=== PATIENT | female | born 1985 | race Caucasian/White ===

== ENCOUNTER 2019-06-26 15:57 | Emergency (ER) | payer OTHER, MEDICAID, SELFPAY ==
[2019-06-26 16:00] VITALS: BP 128/89; PULSE 77; RESP 18; TEMP 37.1; O2SAT 98
--- NOTE | 2019-06-26 16:10 | ED_ITS ---
HPI - URI/Sore Throat <Calista Chavez PA-C - Last Filed: 06/26/19 20:56> General Chief Complaint: Upper Respiratory Symptoms Stated Complaint: has bronchitis; back pain from coughing Time Seen by Provider: 06/26/19 16:05 Source: patient Mode of arrival: Ambulatory Limitations: no limitations History of Present Illness HPI Narrative: This 33-year-old female comes to ED secondary to increased back pain/muscle spasm. She states that she has been dealing with cough for the last 3+ weeks due to allergies, asthma, and quitting smoking. She states cough has been worse with postnasal drip, some nasal and sinus congestion and sputum for the last week along with sore and scratchy throat. She actually saw her PCP in the last couple of days. She has had chest and back x-rays which did not show pneumonia or other acute problem, however today she states her back is starting to spasm and makes her hesitant to cough or take a deep breath. She states this is more on the right side under her shoulder blade area. She states that she feels a little bit short of breath, albuterol does work but she has to use it regularly. She states that she has Flexeril at home but is visiting here and does not have any. She did take some ibuprofen earlier. She denies new fever today. She does not feel acutely worsen terms of her breathing, was hoping to get medication for back pain. Related Data Home Medications Medication Instructions Recorded Confirmed albuterol sulfate [Ventolin HFA] 2 puff INH PRN PRN #0 01/23/17 06/26/19 dextroamphetamine-amphetamine 10 mg PO QAM #0 01/23/17 [Adderall] duloxetine [Cymbalta] 30 mg PO QDAY #0 01/23/17 hydroxyzine HCl 25 mg PO Q8HP PRN #0 04/30/17 benzonatate 200 mg PO QID PRN 06/26/19 06/26/19 cetirizine 10 mg PO DAILY 06/26/19 06/26/19 famotidine 40 mg PO DAILY 06/26/19 06/26/19 fluoxetine mg 06/26/19 fluticasone propionate 1 spray INTRANASAL PRN PRN 06/26/19 06/26/19 gabapentin 300 mg PO TID 06/26/19 06/26/19 ibuprofen 06/26/19 lamotrigine 150 mg PO BID 06/26/19 06/26/19 naltrexone 50 mg PO DAILY 06/26/19 06/26/19 nicotine 1 patch TOPICAL DAILY 06/26/19 06/26/19 Allergies Allergy/AdvReac Type Severity Reaction Status Date / Time morphine [MORPHINE] Allergy Unknown Unverified 12/19/17 12:25 SEASONAL ALLERGIES Allergy Unknown Uncoded 12/19/17 12:25 Review of Systems <Calista Chavez PA-C - Last Filed: 06/26/19 20:56> Review of Systems ROS Unobtainable: All systems reviewed & are unremarkable except as noted in HPI and below Patient History <Calista Chavez PA-C - Last Filed: 06/26/19 20:56> Medical History (Updated 06/26/19 @ 17:11 by Calista Chavez PA-C) Asthma (Chronic) Chronic back pain (Acute) S/P ORIF (open reduction internal fixation) fracture (Resolved) Seasonal allergies (Acute) Social History Smoking Status: Former smoker Social History Smoking Status: Former smoker Last Alcoholic Drink: Three weeks Exam <Calista Chavez PA-C - Last Filed: 06/26/19 20:56> Narrative Exam Narrative: GENERAL APPEARANCE: Patient sitting comfortably, in no distress. HEAD: No sinus TTP. EYES: PERRL, EOMI. EARS: Normal auditory canals, TMS intact with normal light reflexes. ORAL CAVITY: Normal oropharynx. THROAT: Copious PND noted, no erythema or exudate, voice is hoarse NECK/THYROID: Neck supple, full range of motion, shotty anterior cervical lymphadenopathy. LUNGS: Clear to auscultation bilaterally, coarse cough on exam. HEART: RRR without murmur, nl S1, S2, no S3 or S4. Initial Vital Signs Initial Vital Signs: Vital Signs Temperature 98.7 F 06/26/19 16:00 Pulse Rate 77 06/26/19 16:00 Respiratory Rate 18 06/26/19 16:00 Blood Pressure 128/89 06/26/19 16:00 Pulse Oximetry 98 06/26/19 16:00 <Shira Keith MD - Last Filed: 06/29/19 07:01> Initial Vital Signs Initial Vital Signs: Vital Signs Temperature 98.7 F 06/26/19 16:00 Pulse Rate 77 06/26/19 16:00 Respiratory Rate 18 06/26/19 16:00 Blood Pressure 128/89 06/26/19 16:00 Pulse Oximetry 98 06/26/19 16:00 Course <Calista Chavez PA-C - Last Filed: 06/26/19 20:56> Course Additional Information: Patient reports feeling significantly improved after nebulizer treatment and back pain starting to improve after medications. She states that she has had good relief with these in the past, planning to walk to her friend's house and rest there tonight. She feels like this is a typical back pain exacerbation, agrees to return if any acute changes or worsening this evening. Counseled on treating her allergies, restarting Flonase and possible steroids or steroid inhaler and she agrees to follow up with her PCP next week Orders Ordered: Discontinued Medications Albuterol/Ipratropium (Duoneb) 3 ml INH NOW ONE Stop: 06/26/19 16:23 Last Admin: 06/26/19 16:48 Dose: 3 ml Documented by: SMITH Cyclobenzaprine HCl (Flexeril) 10 mg PO NOW ONE Stop: 06/26/19 16:23 Last Admin: 06/26/19 16:35 Dose: 10 mg Documented by: YASMIN Ketorolac Tromethamine (Toradol) 60 mg IM NOW ONE Stop: 06/26/19 16:23 Last Admin: 06/26/19 16:35 Dose: 60 mg Documented by: YASMIN Vital Signs Vital signs: Vital Signs - 8 hr 06/26/19 16:00 06/26/19 17:05 Temperature 98.7 F Pulse Rate 77 93 H Respiratory Rate 18 16 Blood Pressure 128/89 Blood Pressure [Left Arm] 135/96 H Pulse Oximetry 98 98 <Shira Keith MD - Last Filed: 06/29/19 07:01> Orders Ordered: Discontinued Medications Albuterol/Ipratropium (Duoneb) 3 ml INH NOW ONE Stop: 06/26/19 16:23 Last Admin: 06/26/19 16:48 Dose: 3 ml Documented by: SMITH Cyclobenzaprine HCl (Flexeril) 10 mg PO NOW ONE Stop: 06/26/19 16:23 Last Admin: 06/26/19 16:35 Dose: 10 mg Documented by: YASMIN Ketorolac Tromethamine (Toradol) 60 mg IM NOW ONE Stop: 06/26/19 16:23 Last Admin: 06/26/19 16:35 Dose: 60 mg Documented by: YASMIN Vital Signs Vital signs: Vital Signs - 8 hr 06/26/19 16:00 06/26/19 17:05 Temperature 98.7 F Pulse Rate 77 93 H Respiratory Rate 18 16 Blood Pressure 128/89 Blood Pressure [Left Arm] 135/96 H Pulse Oximetry 98 98 Discharge Plan Departure Patient Disposition: Home Clinical Impression: Muscle spasm of back Asthma Qualifiers: Asthma severity: moderate Asthma persistence: persistent Asthma complication type: with acute exacerbation Qualified Code(s): J45.41 - Moderate persistent asthma with (acute) exacerbation Discharge Date/Time: 06/26/19 17:30 Instructions: DI for Asthma -- Adult, DI for Muscle Spasm Activity Restrictions/Additional Instructions: You can continue cyclobenzaprine as needed, and restart your ibuprofen tomorrow as needed as well. These work nicely together. Remember not to drive while taking cyclobenzaprine as it can make you sleepy. Continue your inhaler as often as needed. Return here as we talked about if you have any acutely wors ening symptoms while you are here this evening, or new symptoms such as high fever. Please follow-up with your PCP in the next few days to assess her progress and determine whether you may need other treatment, such as steroids, for your asthma. Prescriptions: No Action albuterol sulfate [Ventolin HFA] 90 MCG/PUFF HFA aerosol inhaler 2 puff INH PRN PRN (Reason: Shortness Of Breath) Qty: 0 RF: 0 duloxetine [Cymbalta] 30 MG capsule,delayed release(DR/EC) 30 mg PO QDAY Qty: 0 RF: 0 dextroamphetamine-amphetamine [Adderall] 10 MG tablet 10 mg PO QAM Qty: 0 RF: 0 hydroxyzine HCl 25 MG tablet 25 mg PO Q8HP PRNQty: 0 RF: 0 fluoxetine 40 mg capsule RF: 0 lamotrigine 150 mg tablet 150 mg PO BID RF: 0 nicotine 14 mg/24 hr patch 24 hour 1 patch topical DAILY RF: 0 cetirizine 10 mg tablet 10 mg PO DAILY RF: 0 benzonatate 200 mg capsule 200 mg PO QID PRN (Reason: Cough) RF: 0 naltrexone 50 mg tablet 50 mg PO DAILY RF: 0 famotidine 40 mg tablet 40 mg PO DAILY RF: 0 gabapentin 300 mg capsule 300 mg PO TID RF: 0 ibuprofen 600 mg tablet RF: 0 fluticasone propionate 50 mcg/actuation spray,suspension 1 spray INTRANASAL PRN PRN (Reason: Allergy Symptoms) RF: 0 Referrals: Jose Rosas [Other]
[2019-06-26] MEDS: KETOROLAC 60 MG/2 ML VIAL IM (16:35)
[2019-06-26] MEDS: CYCLOBENZAPRINE 10 MG TABLET PO (16:35)
[2019-06-26] MEDS: ALBUTEROL/IPRATROPIUM 3 ML AMPUL INH (16:48)
[2019-06-26 17:05] VITALS: BP 135/96; PULSE 93; RESP 16; O2SAT 98
== END 2019-06-26 17:30 | disposition home or self-care (01) ==
PROVIDERS: Emergency Provider Internal Medicine
DX: M62.830 Muscle spasm of back (principal); J45.41 Moderate persistent asthma with (acute) exacerbation
CPT/HCPCS: 96372; 99282; 99283; J1885

== ENCOUNTER 2019-08-01 16:36 | Emergency (ER) | payer OTHER, MEDICAID, SELFPAY ==
[2019-08-01 16:46] VITALS: BP 143/76; PULSE 66; RESP 16; TEMP 36.7; O2SAT 100
--- NOTE | 2019-08-01 17:08 | PC.NURSE ---
During discussion with patient at triage patient reports three serious suicidal attempts since 2012. I tried [place] the police stopped me and brought me in, I tried jumping off an over pass into traffic, i have tried drowning myself Patient states I know no one will come to my so I will throw my own. I want to kill myself so publicly and embarassing that they will all grieve my . I want to kill myself but I have so much fucking karseda Patient reports her plan is to hang herself. Reports multiple hospitalizations for mental health, only dx with boarder line personality, has not been taking medications for about one week. I went to my best friends dad's viewing yesterday and I cant stop seeing ghosts Reports auditory and visual hallucinations. Contracts for safety while in the department let me help you go through my things I have knives and survival gear assured patient that we would lock her belongings up. Patient admits she wants help. Patient states she lives with a roommate who is also trying to kill herself
[2019-08-01] MEDS: LORazepam 0.5 MG TABLET 2 MG PO (17:42)
[2019-08-01 17:44] LABS: Add Manual Diff / Slide Review NO; Basophils Absolute Auto 100 /uL (0-100); Basophils Percent Auto 0.4 % (0-2); Eosinophils Absolute Auto 100 /uL (0-450); Eosinophils Percent Auto 0.5 % (2-4); Hematocrit 38.1 % (36-46); Hemoglobin 12.7 g/dL (12.0-16.0); Lymphocytes Absolute Auto 1500 /uL (1100-4500); Lymphocytes Percent Auto 10.1 % (25-40); Mean Corpuscular HGB Conc 33.3 % (30-36); Mean Corpuscular Hemoglobin 29.8 PG (26-34); Mean Corpuscular Volume 89.4 fL (80-100); Monocytes Absolute Auto 900 /uL (0-900); Monocytes Percent Auto 6.5 % (3-14); Neutrophils Absolute Auto 12000 /uL (1500-7000); Neutrophils Percent Auto 82.5 % (50-75); Platelet Count 412 X10^3/uL (150-400); Red Blood Cell Count 4.26 X10^6/uL (4.0-5.2); Red Cell Distribution Width 14.5 % (11.6-14.8); White Blood Cell Count 14.6 X10^3/uL (4.5-11.0)
[2019-08-01] MEDS: ACETAMINOPHEN 325 MG TABLET 975 MG PO (17:55)
[2019-08-01 17:59] LABS: Acetaminophen < 10 ug/mL (10-30); Alanine Aminotransferase 35 IU/L (<35); Albumin Globulin Ratio 1.7 (1.0-2.8); Alkaline Phosphatase 114 U/L (38-126); Amylase 52 U/L (30-110); Aspartate Aminotransferase 62 IU/L (14-36); BUN Creatinine Ratio 15.7 (6-22); Bilirubin Total 0.7 mg/dL (0.2-1.3); Blood Urea Nitrogen 11 mg/dL (7-17); Calcium 9.9 mg/dL (8.4-10.2); Carbon Dioxide 21 mmol/L (22-32); Chloride 105 mmol/L (98-107); Estimated Glomerular Filt Rate > 60.0 mL/min (>60); Ethanol (ETOH) < 10 mg/dL; Globulin 2.9 g/dL (1.7-4.1); Glucose 98 mg/dL (70-100); HEMOLYSIS < 15 (0-50); Lipase 51 U/L (23-300); Potassium 3.9 mmol/L (3.4-5.1); Salicylate < 1.0 mg/dL (<20); Sodium 139 mmol/L (137-145); Total Protein 7.9 g/dL (6.3-8.2)
[2019-08-01 18:35] VITALS: PULSE 104; RESP 16; O2SAT 96
[2019-08-01 18:50] LABS: Thyroid Stimulating Hormone 0.57 uIU/mL (0.47-4.68)
--- NOTE | 2019-08-01 18:50 | ED_ITS ---
HPI - Psych <Nara Astudillo, [employer]UE ADDED ASSESSOR-BC - Last Filed: 08/01/19 21:19> General Chief Complaint: Psychiatric Symptoms Stated Complaint: sucidal ideation Time Seen by Provider: 08/01/19 17:19 Source: patient Mode of arrival: Ambulatory History of Present Illness HPI Narrative: The patient is a 33-year-old female former smoker with history of depression and suicide attempts who presents with a chief complaint of suicidal ideation. She has a plan to hang herself, and presents to the emergency department with a noose as well as pepper spray and a knife. She has a history of multiple suicide attempts [place]. She has a history of multiple hospitalizations. She states that she has been off of her meds for 1 week, comes to the emergency department after going to her friend's father's week, which she viewed his corpse. She states that since the viewing, she has seen done people and goes, complains of visual and auditory hallucinations. She states that she wants to kill herself and anybody else who cares about her. She denies any drug use other than marijuana. Related Data Home Medications Medication Instructions Recorded Confirmed albuterol sulfate [Ventolin HFA] 2 puff INH PRN PRN #0 01/23/17 06/26/19 dextroamphetamine-amphetamine 10 mg PO QAM #0 01/23/17 [Adderall] duloxetine [Cymbalta] 30 mg PO QDAY #0 01/23/17 hydroxyzine HCl 25 mg PO Q8HP PRN #0 04/30/17 benzonatate 200 mg PO QID PRN 06/26/19 06/26/19 cetirizine 10 mg PO DAILY 06/26/19 06/26/19 famotidine 40 mg PO DAILY 06/26/19 06/26/19 fluoxetine mg 06/26/19 fluticasone propionate 1 spray INTRANASAL PRN PRN 06/26/19 06/26/19 gabapentin 300 mg PO TID 06/26/19 06/26/19 ibuprofen 06/26/19 lamotrigine 150 mg PO BID 06/26/19 06/26/19 naltrexone 50 mg PO DAILY 06/26/19 06/26/19 nicotine 1 patch TOPICAL DAILY 06/26/19 06/26/19 Allergies Allergy/AdvReac Type Severity Reaction Status Date / Time morphine [MORPHINE] Allergy Unknown ITCHING Unverified 08/01/19 16:58 SEASONAL ALLERGIES Allergy Unknown Uncoded 12/19/17 12:25 Review of Systems <SUZIE Capone - Last Filed: 08/01/19 21:19> Review of Systems Narrative: GENERAL: Denies chills, fatigue, malaise, fever, sweats. HEENT: Denies sinus pain, ear pain, sore throat, difficulty swallowing, dizziness. RESPIRATORY: Denies dyspnea, cough, wheezing, hemoptysis, sputum. CARDIOVASCULAR: Denies chest pain, palpitations, orthopnea, edema, GASTROINTESTINAL: Denies nausea, vomiting, abdominal pain, diarrhea, constipation, melena. : Denies dysuria, frequency, incontinence, hematuria, urinary retention. MUSCULOSKELETAL: denies weakness, joint pain, or bony pain SKIN: See HPI NEUROLOGIC: Denies weakness, headache, numbness, change in speech, confusion, seizures, incoordination. PSYCHIATRIC: No concerning psychosocial issues. 12 point review of systems is negative except for those stated above Patient History <SUZIE Capone - Last Filed: 08/01/19 21:19> Medical History Asthma (Chronic) Chronic back pain (Acute) S/P ORIF (open reduction internal fixation) fracture (Resolved) Seasonal allergies (Acute) Social History Smoking Status: Former smoker alcohol intake frequency: other Substance Use Type: marijuana Exam <SUZIE Capone - Last Filed: 08/01/19 21:19> Narrative Exam Narrative: GENERAL: This is a well-nourished, well-developed patient, appears very anxious, pulling at her hair HEAD: Atraumatic. Normocephalic. No temporal or scalp tenderness. EYES: Pupils equal round and reactive. Extraocular motions intact. No scleral icterus. No injection or drainage. ENT: Nose without bleeding, purulent drainage or septal hematoma. Throat without erythema, tonsillar hypertrophy or exudate. Uvula midline. Airway patent. NECK: Trachea midline. No JVD or lymphadenopathy. Supple, nontender, no meningeal signs. CARDIOVASCULAR: Regular rate and rhythm without murmurs, gallops, or rubs. RESPIRATORY: Clear to auscultation. Breath sounds equal bilaterally. No wheezes, rales, or rhonchi. No cough. No increased respiratory effort. No accessory muscle use. GASTROINTESTINAL: Abdomen soft, non-tender, nondistended. No hepato- splenomegaly, or palpable masses. No guarding. EXTREMITIES: No clubbing, cyanosis, or edema. No joint tenderness, effusion, or edema noted. BACK: Nontender without deformity or crepitance. No flank tenderness. NEURO: AOx3. Complaining suicidal ideation and homicidal ideation. Complaining of auditory and visual hallucinations. SKIN: No rash or erythema. Initial Vital Signs Initial Vital Signs: Vital Signs Temperature 98.0 F 08/01/19 16:46 Pulse Rate 66 08/01/19 16:46 Respiratory Rate 16 08/01/19 16:46 Blood Pressure 143/76 H 08/01/19 16:46 Pulse Oximetry 100 08/01/19 16:46 <Adan Huitron DO - Last Filed: 08/01/19 21:43> Initial Vital Signs Initial Vital Signs: Vital Signs Temperature 98.0 F 08/01/19 16:46 Pulse Rate 66 08/01/19 16:46 Respiratory Rate 16 08/01/19 16:46 Blood Pressure 143/76 H 08/01/19 16:46 Pulse Oximetry 100 08/01/19 16:46 Course <SUZIE Capone - Last Filed: 08/01/19 21:19> Orders Ordered: ED Orders 08/01/19 17:20 Consult to INSPECTOR OPEN DIE - Auto Heater Mechanic Stat 08/01/19 17:38 Acetaminophen Stat Amylase Stat Complete Blood Count AUTO DIFF Stat Comprehensive Metabolic Panel Stat Ethanol (ETOH) Stat Lipase Stat Salicylate Stat Thyroid Stimulating Hormone Stat 08/01/19 20:31 Ictotest Urine Stat Urinalysis and Microscopic Stat Urine Culture Stat Urine Drug Screen, Rapid Stat Discontinued Medications Acetaminophen (Tylenol) 975 mg PO NOW ONE Stop: 08/01/19 17:53 Last Admin: 08/01/19 17:55 Dose: 975 mg Documented by: GABRIELA Lorazepam (Ativan) 2 mg PO NOW ONE Stop: 08/01/19 17:28 Last Admin: 08/01/19 17:42 Dose: 2 mg Documented by: GABRIELA Vital Signs Vital signs: Vital Signs - 8 hr 08/01/19 16:46 08/01/19 18:35 Temperature 98.0 F Pulse Rate 66 104 H Respiratory Rate 16 16 Blood Pressure 143/76 H Pulse Oximetry 100 96 <Adan Huitron DO - Last Filed: 08/01/19 21:43> Orders Ordered: ED Orders 08/01/19 17:20 Consult to INSPECTOR OPEN DIE - Auto Heater Mechanic Stat 08/01/19 17:38 Acetaminophen Stat Amylase Stat Complete Blood Count AUTO DIFF Stat Comprehensive Metabolic Panel Stat Ethanol (ETOH) Stat Lipase Stat Salicylate Stat Thyroid Stimulating Hormone Stat 08/01/19 20:31 Ictotest Urine Stat Urinalysis and Microscopic Stat Urine Culture Stat Urine Drug Screen, Rapid Stat Discontinued Medications Acetaminophen (Tylenol) 975 mg PO NOW ONE Stop: 08/01/19 17:53 Last Admin: 08/01/19 17:55 Dose: 975 mg Documented by: GABRIELA Lorazepam (Ativan) 2 mg PO NOW ONE Stop: 08/01/19 17:28 Last Admin: 08/01/19 17:42 Dose: 2 mg Documented by: GABRIELA Vital Signs Vital signs: Vital Signs - 8 hr 08/01/19 16:46 08/01/19 18:35 Temperature 98.0 F Pulse Rate 66 104 H Respiratory Rate 16 16 Blood Pressure 143/76 H Pulse Oximetry 100 96 [facility] - Psych <SUZIE Capone - Last Filed: 08/01/19 21:19> Lab Data Result diagrams: 08/01/19 17:38 08/01/19 17:38 Labs: Lab Results 08/01/19 08/01/19 08/01/19 Range/Units 17:38 17:38 17:38 WBC 14.6 H (4.5-11.0) X10^3/uL RBC 4.26 (4.0-5.2) X10^6/uL Hgb 12.7 (12.0-16.0) g/dL Hct 38.1 (36-46) % MCV 89.4 (80-100) fL MCH 29.8 (26-34) PG MCHC 33.3 (30-36) % RDW 14.5 (11.6-14.8) % Plt Count 412 H (150-400) X10^3/uL Neut % (Auto) 82.5 H (50-75) % Lymph % (Auto) 10.1 L (25-40) % [place] % (Auto) 6.5 (3-14) % Eos % (Auto) 0.5 L (2-4) % Baso % (Auto) 0.4 (0-2) % Neut # (Auto) 55564 H (9015-7592) /uL Lymph # (Auto) 1500 (5996-2623) /uL [place] # (Auto) 900 (0-900) /uL Eos # (Auto) 100 (0-450) /uL Baso # (Auto) 100 (0-100) /uL Sodium 139 (137-145) mmol/L Potassium 3.9 (3.4-5.1) mmol/L Chloride 105 (98-107) mmol/L Carbon Dioxide 21 L (22-32) mmol/L BUN 11 (7-17) mg/dL Creatinine 0.70 (0.52-1.04) mg/dL Estimated GFR > 60.0 (>60) mL/min BUN/Creatinine Ratio 15.7 (6-22) Glucose 98 (70-100) mg/dL Calcium 9.9 (8.4-10.2) mg/dL Total Bilirubin 0.7 (0.2-1.3) mg/dL AST 62 H (14-36) IU/L ALT 35 H (<35) IU/L Alkaline Phosphatase 114 (38-126) U/L Total Protein 7.9 (6.3-8.2) g/dL Albumin 5.0 (3.5-5.0) g/dL Globulin 2.9 (1.7-4.1) g/dL Albumin/Globulin Ratio 1.7 (1.0-2.8) Amylase (30-110) U/L Lipase (23-300) U/L TSH 0.57 (0.47-4.68) uIU/mL Urine Color Urine Appearance Urine pH (4.5-8.0) Ur Specific [place] (1.000-1.035) Urine Protein (Negative) Urine Glucose (UA) (Negative) g/dL Urine Ketones (NEGATIVE) Urine Occult Blood (Negative) Urine Nitrate (Negative) Urine Bilirubin (NEGATIVE) Urine Ictotest (Negative) Urine Urobilinogen (0.2) E.U./dL Ur Leukocyte Esterase (NEGATIVE) Urine RBC (0-5/HPF) Urine WBC (0-5/HPF) Ur Squamous Epith Cells (0-5/HPF) Urine Bacteria (None) Ur Culture Indicated? Salicylates < 1.0 (<20) mg/dL U Morph 300 ng/mL cutoff (Negative) Ur Oxycodone Screen (Negative) Urine Methadone Screen (Negative) Acetaminophen < 10 L (10-30) ug/mL Ur Barbiturates Screen (Negative) U Tricyclic Antidepress (Negative) Ur Phencyclidine Scrn (Negative) Ur Amphetamines Screen (Negative) U Methamphetamines Scrn (Negative) Ur MDMA Scrn (Ecstasy) (Negative) U Benzodiazepines Scrn (Negative) Urine Cocaine Screen (Negative) U Marijuana (THC) Screen (Negative) Ethyl Alcohol < 10 ( - 10) mg/dL 08/01/19 08/01/19 08/01/19 Range/Units 17:38 20:31 20:31 WBC (4.5-11.0) X10^3/uL RBC (4.0-5.2) X10^6/uL Hgb (12.0-16.0) g/dL Hct (36-46) % MCV (80-100) fL MCH (26-34) PG MCHC (30-36) % RDW (11.6-14.8) % Plt Count (150-400) X10^3/uL Neut % (Auto) (50-75) % Lymph % (Auto) (25-40) % [place] % (Auto) (3-14) % Eos % (Auto) (2-4) % Baso % (Auto) (0-2) % Neut # (Auto) (2425-2190) /uL Lymph # (Auto) (1470-0510) /uL [place] # (Auto) (0-900) /uL Eos # (Auto) (0-450) /uL Baso # (Auto) (0-100) /uL Sodium (137-145) mmol/L Potassium (3.4-5.1) mmol/L Chloride (98-107) mmol/L Carbon Dioxide (22-32) mmol/L BUN (7-17) mg/dL Creatinine (0.52-1.04) mg/dL Estimated GFR (>60) mL/min BUN/Creatinine Ratio (6-22) Glucose (70-100) mg/dL Calcium (8.4-10.2) mg/dL Total Bilirubin (0.2-1.3) mg/dL AST (14-36) IU/L ALT (<35) IU/L Alkaline Phosphatase (38-126) U/L Total Protein (6.3-8.2) g/dL Albumin (3.5-5.0) g/dL Globulin (1.7-4.1) g/dL Albumin/Globulin Ratio (1.0-2.8) Amylase 52 (30-110) U/L Lipase 51 (23-300) U/L TSH (0.47-4.68) uIU/mL Urine Color Red Urine Appearance Clear Urine pH 5.5 (4.5-8.0) Ur Specific [place] 1.020 (1.000-1.035) Urine Protein 2+ H (Negative) Urine Glucose (UA) Negative (Negative) g/dL Urine Ketones 3+ H (NEGATIVE) Urine Occult Blood 3+ H (Negative) Urine Nitrate Negative (Negative) Urine Bilirubin 1+ H (NEGATIVE) Urine Ictotest Negative (Negative) Urine Urobilinogen 0.2 (0.2) E.U./dL Ur Leukocyte Esterase 2+ H (NEGATIVE) Urine RBC >100/hpf H (0-5/HPF) Urine WBC 10-30/hpf H (0-5/HPF) Ur Squamous Epith Cells 1-5 /hpf (0-5/HPF) Urine Bacteria Many (>30) H (None) Ur Culture Indicated? Specimen cultured Salicylates (<20) mg/dL U Morph 300 ng/mL cutoff Negative (Negative) Ur Oxycodone Screen Negative (Negative) Urine Methadone Screen Negative (Negative) Acetaminophen (10-30) ug/mL Ur Barbiturates Screen Negative (Negative) U Tricyclic Antidepress Positive H (Negative) Ur Phencyclidine Scrn Negative (Negative) Ur Amphetamines Screen Negative (Negative) U Methamphetamines Scrn Negative (Negative) Ur MDMA Scrn (Ecstasy) Negative (Negative) U Benzodiazepines Scrn Negative (Negative) Urine Cocaine Screen Negative (Negative) U Marijuana (THC) Screen Positive H (Negative) Ethyl Alcohol ( - 10) mg/dL Point of Care Testing Test Results Negative MDM Narrative Medical decision making narrative: The patient is a 33-year-old female with history of borderline personality disorder who presents with a chief complaint of suicidal ideation. She states that she went to kill herself by hanging presents to the emergency department with the news in her bag. She has a significant history of multiple suicide attempts, multiple hospitalizations. She notes that she went to a and has since been elucidated gives and that people. She complains of command hallucinations, but does not the verify with the hallucinations state. She states that she sees people. The patient is very perseverative, tangential, has pressured speech and appears very paranoid on initial evaluation. She was evaluated by shoe parts caser, who has sent paperwork to [place]. At this point the patient remains voluntary, however she tries to leave, I would make her in voluntary at that point time. She has been cooperative throughout her stay in the emergency department, though at times stating she monitor parents to come pick her up so she could leave. Her urinalysis indicates a possible UTI. Patient was signed out to Dr. Huitron at 2100 with placement pending <Adan Huitron, DO - Last Filed: 08/01/19 21:43> Lab Data Labs: Lab Results 08/01/19 08/01/19 08/01/19 Range/Units 17:38 17:38 17:38 WBC 14.6 H (4.5-11.0) X10^3/uL RBC 4.26 (4.0-5.2) X10^6/uL Hgb 12.7 (12.0-16.0) g/dL Hct 38.1 (36-46) % MCV 89.4 (80-100) fL MCH 29.8 (26-34) PG MCHC 33.3 (30-36) % RDW 14.5 (11.6-14.8) % Plt Count 412 H (150-400) X10^3/uL Neut % (Auto) 82.5 H (50-75) % Lymph % (Auto) 10.1 L (25-40) % [place] % (Auto) 6.5 (3-14) % Eos % (Auto) 0.5 L (2-4) % Baso % (Auto) 0.4 (0-2) % Neut # (Auto) 79064 H (0387-0722) /uL Lymph # (Auto) 1500 (8661-4052) /uL [place] # (Auto) 900 (0-900) /uL Eos # (Auto) 100 (0-450) /uL Baso # (Auto) 100 (0-100) /uL Sodium 139 (137-145) mmol/L Potassium 3.9 (3.4-5.1) mmol/L Chloride 105 (98-107) mmol/L Carbon Dioxide 21 L (22-32) mmol/L BUN 11 (7-17) mg/dL Creatinine 0.70 (0.52-1.04) mg/dL Estimated GFR > 60.0 (>60) mL/min BUN/Creatinine Ratio 15.7 (6-22) Glucose 98 (70-100) mg/dL Calcium 9.9 (8.4-10.2) mg/dL Total Bilirubin 0.7 (0.2-1.3) mg/dL AST 62 H (14-36) IU/L ALT 35 H (<35) IU/L Alkaline Phosphatase 114 (38-126) U/L Total Protein 7.9 (6.3-8.2) g/dL Albumin 5.0 (3.5-5.0) g/dL Globulin 2.9 (1.7-4.1) g/dL Albumin/Globulin Ratio 1.7 (1.0-2.8) Amylase (30-110) U/L Lipase (23-300) U/L TSH 0.57 (0.47-4.68) uIU/mL Urine Color Urine Appearance Urine pH (4.5-8.0) Ur Specific [place] (1.000-1.035) Urine Protein (Negative) Urine Glucose (UA) (Negative) g/dL Urine Ketones (NEGATIVE) Urine Occult Blood (Negative) Urine Nitrate (Negative) Urine Bilirubin (NEGATIVE) Urine Ictotest (Negative) Urine Urobilinogen (0.2) E.U./dL Ur Leukocyte Esterase (NEGATIVE) Urine RBC (0-5/HPF) Urine WBC (0-5/HPF) Ur Squamous Epith Cells (0-5/HPF) Urine Bacteria (None) Ur Culture Indicated? Salicylates < 1.0 (<20) mg/dL U Morph 300 ng/mL cutoff (Negative) Ur Oxycodone Screen (Negative) Urine Methadone Screen (Negative) Acetaminophen < 10 L (10-30) ug/mL Ur Barbiturates Screen (Negative) U Tricyclic Antidepress (Negative) Ur Phencyclidine Scrn (Negative) Ur Amphetamines Screen (Negative) U Methamphetamines Scrn (Negative) Ur MDMA Scrn (Ecstasy) (Negative) U Benzodiazepines Scrn (Negative) Urine Cocaine Screen (Negative) U Marijuana (THC) Screen (Negative) Ethyl Alcohol < 10 ( - 10) mg/dL 08/01/19 08/01/19 08/01/19 Range/Units 17:38 20:31 20:31 WBC (4.5-11.0) X10^3/uL RBC (4.0-5.2) X10^6/uL Hgb (12.0-16.0) g/dL Hct (36-46) % MCV (80-100) fL MCH (26-34) PG MCHC (30-36) % RDW (11.6-14.8) % Plt Count (150-400) X10^3/uL Neut % (Auto) (50-75) % Lymph % (Auto) (25-40) % [place] % (Auto) (3-14) % Eos % (Auto) (2-4) % Baso % (Auto) (0-2) % Neut # (Auto) (6686-2198) /uL Lymph # (Auto) (9513-6249) /uL [place] # (Auto) (0-900) /uL Eos # (Auto) (0-450) /uL Baso # (Auto) (0-100) /uL Sodium (137-145) mmol/L Potassium (3.4-5.1) mmol/L Chloride (98-107) mmol/L Carbon Dioxide (22-32) mmol/L BUN (7-17) mg/dL Creatinine (0.52-1.04) mg/dL Estimated GFR (>60) mL/min BUN/Creatinine Ratio (6-22) Glucose (70-100) mg/dL Calcium (8.4-10.2) mg/dL Total Bilirubin (0.2-1.3) mg/dL AST (14-36) IU/L ALT (<35) IU/L Alkaline Phosphatase (38-126) U/L Total Protein (6.3-8.2) g/dL Albumin (3.5-5.0) g/dL Globulin (1.7-4.1) g/dL Albumin/Globulin Ratio (1.0-2.8) Amylase 52 (30-110) U/L Lipase 51 (23-300) U/L TSH (0.47-4.68) uIU/mL Urine Color Red Urine Appearance Clear Urine pH 5.5 (4.5-8.0) Ur Specific [place] 1.020 (1.000-1.035) Urine Protein 2+ H (Negative) Urine Glucose (UA) Negative (Negative) g/dL Urine Ketones 3+ H (NEGATIVE) Urine Occult Blood 3+ H (Negative) Urine Nitrate Negative (Negative) Urine Bilirubin 1+ H (NEGATIVE) Urine Ictotest Negative (Negative) Urine Urobilinogen 0.2 (0.2) E.U./dL Ur Leukocyte Esterase 2+ H (NEGATIVE) Urine RBC >100/hpf H (0-5/HPF) Urine WBC 10-30/hpf H (0-5/HPF) Ur Squamous Epith Cells 1-5 /hpf (0-5/HPF) Urine Bacteria Many (>30) H (None) Ur Culture Indicated? Specimen cultured Salicylates (<20) mg/dL U Morph 300 ng/mL cutoff Negative (Negative) Ur Oxycodone Screen Negative (Negative) Urine Methadone Screen Negative (Negative) Acetaminophen (10-30) ug/mL Ur Barbiturates Screen Negative (Negative) U Tricyclic Antidepress Positive H (Negative) Ur Phencyclidine Scrn Negative (Negative) Ur Amphetamines Screen Negative (Negative) U Methamphetamines Scrn Negative (Negative) Ur MDMA Scrn (Ecstasy) Negative (Negative) U Benzodiazepines Scrn Negative (Negative) Urine Cocaine Screen Negative (Negative) U Marijuana (THC) Screen Positive H (Negative) Ethyl Alcohol ( - 10) mg/dL Point of Care Testing Test Results Negative Discharge Plan Departure Prescriptions: No Action albuterol sulfate [Ventolin HFA] 90 MCG/PUFF HFA aerosol inhaler 2 puff INH PRN PRN (Reason: Shortness Of Breath) Qty: 0 RF: 0 duloxetine [Cymbalta] 30 MG capsule,delayed release(DR/EC) 30 mg PO QDAY Qty: 0 RF: 0 dextroamphetamine-amphetamine [Adderall] 10 MG tablet 10 mg PO QAM Qty: 0 RF: 0 hydroxyzine HCl 25 MG tablet 25 mg PO Q8HP PRNQty: 0 RF: 0 fluoxetine 40 mg capsule RF: 0 lamotrigine 150 mg tablet 150 mg PO BID RF: 0 nicotine 14 mg/24 hr patch 24 hour 1 patch topical DAILY RF: 0 cetirizine 10 mg tablet 10 mg PO DAILY RF: 0 benzonatate 200 mg capsule 200 mg PO QID PRN (Reason: Cough) RF: 0 naltrexone 50 mg tablet 50 mg PO DAILY RF: 0 famotidine 40 mg tablet 40 mg PO DAILY RF: 0 gabapentin 300 mg capsule 300 mg PO TID RF: 0 ibuprofen 600 mg tablet RF: 0 fluticasone propionate 50 mcg/actuation spray,suspension 1 spray INTRANASAL PRN PRN (Reason: Allergy Symptoms) RF: 0 <Adan Huitron, DO - Last Filed: 08/01/19 21:43> Sign Out Provider Sign Out Attestation: Dr Huitron Co-Sign Statement: I was available for consultation during this patient's emergency department visit. This chart is signed by myself for administrative purposes only. I did not have direct contact with this patient during this visit. They were seen independently by the APC.
--- NOTE | 2019-08-01 18:50 | CM.SWNOTE ---
Discharge Planning/Care Management ED Psychiatric Symptoms Assessment Start: 08/01/19 16:58 Freq: Status: Active Protocol: Document 08/01/19 17:15 ML (Rec: 08/01/19 18:39 ML [id number]) Psychiatric Symptoms Assessment Symptoms/Complaint Suicidal Ideation Duration Getting Worse History Of Same Yes Associated Psychiatric Symptoms Auditory Hallucinations, Delusions,Depression,Racing Thoughts,Suicidal Ideation, Visual Hallucinations Associated Symptoms Vomiting If Self Harm Admits Thoughts of Self Harm, Has Plans Level of Consciousness Alert,Inappropriate Patient Orientation Name,Age,Birthday,Month,Date, Year,Day of Week,Place, Situation Patient Behavior/Mood Anxious,Cooperative,Crying/ Tearful,Distractible,Fearful, Impulsive,Labile,Restless Ability to Follow Directions Good Patient Cognition Impaired No Affect Description Anxious Patient Appearance Disheveled Hallucination Type Auditory,Visual Delusion Description Paranoid Ideation Thought Process: Disorganized Depressive Symptoms Crying Spells,Difficulty Concentrating,Insomnia Suicidal Ideation Constant Suicide Plan Clear Homicidal Ideation None Nausea/Vomiting Vomiting Emesis Description Food, Undigested TOOL KEEPER - General Dentist/Owner Assessment Start: 08/01/19 18:25 Freq: Status: Active Protocol: Document 08/01/19 18:25 DPL (Rec: 08/01/19 18:50 DPL [id number]) TOOL KEEPER/General Dentist/Owner Assessment Start date 08/01/19 Visit Start Time 05:00 End date 08/01/19 Visit End Time 08:00 Total time Care Management spent on 180 minutes patient visit-in minutes Presenting Problem Patient presents to the ED with acute suicidal ideation/ intent, psychosis; auditory and visual hallucinations. She is extremely anxious and tearful, shares that she has had at least 3-prior serious attempts which were stopped by other people. Dates are not clear, however the first time she attempted to jump off the [place], was stopped by police. Second time , she attempted to jump off of a highway overpass, was stopped by people passing by. Third time (2012) she attempted to self-inflict a head injury. She's been off of her psych meds for 1-week. Precipitating Event(s) Pt states that she has been in [place] with a friend for the last week, has not had any meds due to her provider being at [facility] in [place]. She shared that her new roommate became suicidal, which started her own suicidal reaction. She then went to her friend's grandfather's viewing (recent ), saw his body, and now feels that she's seeing ghosts, bright white and green flashing lights, hearing voices. She was driven by a friend to the ED, after she made a plan to hang herself with a noose. She in terms of wanting to harm other people, she added I want to hurt everyone I love by killing myself in a very public way, and they will all have to grieve deeply. Current Behavioral Health Provider(s) [facility] in [place]. She was not Include Facility, Provider, Ph. # clear about why she no longer has a provider there to prescribe her meds, however that's where her last fills were from. Psych. Hx Mental Health and Chemical Many MH hospitalizations. She Dependency adamantly demanded that she not be sent back to [facility], became nearly hysterical at the idea of it, insisted on being placed at the . This TOOL KEEPER explained that she will be limited to whoever has beds available and agree to take her. Family Hx of Behavioral Abuse Pt's dtr is in the custody of her parents. She was not mentally intact enough to explain these circumstances in detail. Psychiatric Hospitalizations (date(s)/ , [facility], however there were several other instances that she was not able to clarify. Support System(s) Limited. She has a friend of the family who called her in the ER, friends here in [place], however it sounds like her home circumstances have been unstable for some time. School/Work Unemployed Presenting Problem Pt reports that she had been sober for 2-months, [place], and acknowledges marijuana use. She denies using any other drugs. Orientation (Person/Place/Time) Pt is oriented x3. Affect Tearful, agitated/anxious. Thought Content - Specify/Describe Auditory and visual Obsessions, Delusions, Hallucinations hallucinations, severe headached, nausea, disorganized thinking. Speech (Hjhxpr-Uuqt-Tyuhxqi-Rapid-Soft- Rapid/loud when she became Loud-Pressured) hysterical, slow and calm once she received Ativan. Motor (Mpjlzk-Lyddwqein-Oode-Other) Excessive Insight (Present-Partially Present- Impaired Impaired) Judgement (Intact-Impaired) Impaired Impulse Control (Adequate-Impaired) Impaired initially, improved with medication. Memory (Cwdesziil-Ybciez-Wxkqsm, Impaired Impaired-Intact) Concentration (Intact-Impaired) Impaired Attention (Intact-Impaired) Impaired Behavior (Appropriate-Inappropriate) Appropriate, cooperative Suicidal Ideation (Plan) Yes: Active plan to hang herself with a noose (found in her purse). Homicidal Ideation (Plan) No Intervention [facility], is voluntary and willing to get help. TOOL KEEPER is actively working on placement options. RA Plan [facility].
--- NOTE | 2019-08-01 20:25 | PC.NURSE ---
Patient rolled off bed, laying on floor I am hallucinating, I am seeing colors and lights Patient tearful, got off floor and tucked back into bed. Side rail placed up and warm blankets provided. Patient denies any injury or pain. Moving all extremities independently. Patient provided beverage and food.
[2019-08-01 20:34] LABS: Appearance Urine UA CLEAR; Bilirubin Urine UA 1+ (NEGATIVE); Color Urine UA RED; Glucose Urine UA NEGATIVE (Negative); Ketones Urine UA 3+ (NEGATIVE); Leukocyte Esterase Urine UA 2+ (NEGATIVE); Nitrite Urine UA NEGATIVE (Negative); Occult Blood Urine UA 3+ (Negative); Protein Urine UA 2+ (Negative); Urobilinogen Urine UA 0.2 E.U./dL (0.2)
[2019-08-01 20:38] LABS: pH Urine UA 5.5 (4.5-8.0)
[2019-08-01 20:41] LABS: UR Morphine/Opiate cutoff 300 Negative (Negative); Ur Creatinine Normal (Normal); Ur Specific Gravity Normal (Normal); Urine Amphetamines Negative (Negative); Urine Barbiturates Negative (Negative); Urine Benzodiazepines Negative (Negative); Urine Cocaine Negative (Negative); Urine MDMA Negative (Negative); Urine Methadone Negative (Negative); Urine Methamphetamines Negative (Negative); Urine Oxycodone Negative (Negative); Urine Phencyclidine Negative (Negative); Urine Tetrahydrocannabinol Positive (Negative); Urine Tricyclic Antidepressant Positive (Negative); Urine pH Normal (Normal)
[2019-08-01 20:43] LABS: Ictotest Urine Negative (Negative); RBC Urine >100/HPF (0-5/HPF)
[2019-08-01 20:44] LABS: Bacteria Urine Many (>30); Culture Indicated Urine Specimen Cultured; Squamous Epithelial Cell Urine 1-5 /HPF (0-5/HPF); WBC Urine 10-30/HPF (0-5/HPF)
[2019-08-01 23:00] VITALS: BP 128/84; PULSE 117; RESP 16; TEMP 36.1; O2SAT 96
--- NOTE | 2019-08-01 23:23 | PC.NURSE ---
Report given to Tra at [facility].
[2019-08-01 23:24] VITALS: BP 128/84; PULSE 117; RESP 16; TEMP 36.1; O2SAT 96
--- NOTE | 2019-08-01 23:33 | PC.NURSE ---
Pt woke when I entered her room-- she stated she goes by her middle name, Barbara, and communicated with me clearly and effectively. She was calm, cooperative and even cheerful/humorous at times. She then ate some snacks, and went back to resting.
[2019-08-02 01:26] VITALS: BP 120/80; PULSE 105; RESP 18; O2SAT 97
--- NOTE | 2019-08-02 01:38 | PC.NURSE ---
She left here calm and co-operative.She denied any suicidal or homicidal ideation,she denied hallucinations.
== END 2019-08-02 01:38 ==
PROVIDERS: Emergency Provider Nurse Practitioner Family
DX: R45.851 Suicidal ideations (principal); R44.3 Hallucinations, unspecified
CPT/HCPCS: 36415; 80053; 80305; 80320; 80329; 81001; 81025; 82150; 83690; 84443; 85025; 87077; 87086; 87147; 99284; 99285; 99291; 99292; G0480

== ENCOUNTER 2020-01-19 07:08 | Emergency (ER) | payer OTHER, MEDICAID, SELFPAY ==
[2020-01-19] VITALS (7 sets, daily range): BP systolic 114–152; BP diastolic 72–95; PULSE 88–97; RESP 14–20; TEMP 36.8–36.9; O2SAT 94–99
--- NOTE | 2020-01-19 07:30 | ED.PSYCH ---
HPI - Psych General Chief Complaint: Psychiatric Symptoms Stated Complaint: PSYCHOSIS/ PREG SCARE/ NEGLECT Time Seen by Provider: 01/19/20 07:26 Source: patient Mode of arrival: Wheelchair History of Present Illness HPI Narrative: HPI: The patient is a 34-year-old female with a history of multiple visits to the emergency department for various mental health issues. 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 She uses multiple different joints. She states that she just finished a 2 week period of being depressed and is now on a manic on and has been unable to sleep for the last several days. She denies being homicidal or suicidal or wanting to hurt herself. She has no plan to hurt herself. She she just feels extremely anxious and agitated and does not know what to do. She states that she has been having visual hallucinations but will not expand same anymore the neck. She denies any auditory hallucinations. She denies a headache chest pain cough shortness of breath difficulty in breathing. She does admit that she has been exposed to Covid. Related Data Home Medications Medication Instructions Recorded Confirmed albuterol sulfate [Ventolin HFA] 2 puff INH PRN PRN #0 01/23/17 06/26/19 dextroamphetamine-amphetamine 10 mg PO QAM #0 01/23/17 [Adderall] duloxetine [Cymbalta] 30 mg PO QDAY #0 01/23/17 hydroxyzine HCl 25 mg PO Q8HP PRN #0 04/30/17 benzonatate 200 mg PO QID PRN 06/26/19 06/26/19 cetirizine 10 mg PO DAILY 06/26/19 06/26/19 famotidine 40 mg PO DAILY 06/26/19 06/26/19 fluoxetine mg 06/26/19 fluticasone propionate 1 spray INTRANASAL PRN PRN 06/26/19 06/26/19 gabapentin 300 mg PO TID 06/26/19 06/26/19 ibuprofen 06/26/19 lamotrigine 150 mg PO BID 06/26/19 06/26/19 naltrexone 50 mg PO DAILY 06/26/19 06/26/19 nicotine 1 patch TOPICAL DAILY 06/26/19 06/26/19 Allergies Allergy/AdvReac Type Severity Reaction Status Date / Time morphine [MORPHINE] Allergy Unknown ITCHING Unverified 08/01/19 16:58 SEASONAL ALLERGIES Allergy Unknown Uncoded 12/19/17 12:25 Review of Systems Review of Systems Narrative: REVIEW OF SYSTEMS: CONSTITUTIONAL: No fever chills or sweats NEUROLOGICAL: No headache numbness tingling paresthesias in seizures or paresis at this time. States that she has visual hallucinations but will not describe. Denies auditory hallucinations. EENT: Complains of dental decay involving her left upper posterior wisdom tooth with periodic pain. Complains of sinus congestion but no sore throat. CARDIO-PULMONARY: Denies any chest pain, cough shortness of breath. GASTROINTESTINAL: Denies any abdominal pain nausea vomiting diarrhea. States that she is anorexic. GENITAL URINARY: Denies being but states that she is having vaginal bleeding at this time and that she has an IUD in place. She denies any urinary symptoms. MUSCULOSKELETAL/ RHEUMATOLOGICAL: Denies any joint pain or back pain. DERMATOLOGICAL: Denies any skin rash hives or itching. MENTAL HEALTH: Denies being homicidal or suicidal at this time. States that she just got over a long period of depression and is on a manic high at the present time. She has been insomniac and unable to sleep. She emphatically states I am not bipolar. I have PTSD and IM an attic. 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 Patient History Medical History Asthma (Chronic) Chronic back pain (Acute) S/P ORIF (open reduction internal fixation) fracture (Resolved) Seasonal allergies (Acute) Social History Smoking Status: Former smoker Smoking Status: Former smoker alcohol intake frequency: other Substance Use Type: marijuana Exam Narrative Exam Narrative: PHYSICAL EXAM: CONSTITUTIONAL: Awake, Alert, Oriented, Coherent, Cooperative in NAD. Does not appear toxic or ill. HEAD: AT/NC EENT: PERRL, FROM of eyes, no discharge, no nystagmus EARS:No drainage from the ears, Tympanic membranes intact bilaterally, clear EAC NOSE:No epistaxis or nasal drainage MOUTH:Oral mucosa is moist and pink, posterior pharynx is without erythema or exudate. NECK: Supple, no obvious JVD, Trachea is midline without stridor, no palpable LN. SPINE: Palpationof the cervical, Thoracic, Lumbar or Sacral spine reveals no gross deformity or tenderness. No CVA tenderness. THORAX: No deformity, retractions, chest wall tenderness. LUNGS: Clear, symmetrical breath sounds without respiratory distress. HEART: Normal heart tones, regular rhythm and rate without murmur. ABDOMEN: Soft, non-tender, normal bowel sounds without guarding, rebound, rigidity or palpable mass. LYMPHATIC: no palpable lymph nodes or spleen. EXTREMITIES: No edema, deformity, tenderness or cyanosis. SKIN: No rash, bruising, petechiae or purpura. NEURO: Awake, alert, oriented, conversive, cranial nerves II-XII are symmetrical , moves all 4 extremities and is ambulatory. MENTAL HEALTH: Does not appear anxious or depressed. Initial Vital Signs Initial Vital Signs: Vital Signs Temperature 98.2 F 01/19/20 07:30 Pulse Rate 92 H 01/19/20 07:30 Respiratory Rate 18 01/19/20 07:30 Blood Pressure 142/95 H 01/19/20 07:30 Pulse Oximetry 98 01/19/20 07:30 Course Orders Ordered: Discontinued Medications Lorazepam (Ativan) 2 mg PO NOW ONE Stop: 01/19/20 07:51 Last Admin: 01/19/20 08:01 Dose: 2 mg Documented by: NIKOLAS Lorazepam (Ativan) 2 mg PO NOW ONE Stop: 01/19/20 14:31 Last Admin: 01/19/20 14:46 Dose: 2 mg Documented by: GABRIELA Vital Signs Vital signs: Vital Signs - 8 hr 01/19/20 12:50 01/19/20 14:36 Temperature 98.4 F 98.4 F Pulse Rate 93 H 96 H Respiratory Rate 16 16 Blood Pressure [Left Arm] 127/86 136/94 H Pulse Oximetry 99 97 MDM - Psych Lab Data Result diagrams: 01/19/20 09:40 01/19/20 09:40 Labs: Lab Results 01/19/20 01/19/20 01/19/20 Range/Units 07:40 07:40 09:40 WBC 10.2 (4.5-11.0) X10^3/uL RBC 3.75 L (4.0-5.2) X10^6/uL Hgb 11.2 L (12.0-16.0) g/dL Hct 33.2 L (36-46) % MCV 88.5 (80-100) fL MCH 29.8 (26-34) PG MCHC 33.7 (30-36) % RDW 16.1 H (11.6-14.8) % Plt Count 312 (150-400) X10^3/uL Neut % (Auto) 70.6 (50-75) % Lymph % (Auto) 21.3 L (25-40) % [place] % (Auto) 6.5 (3-14) % Eos % (Auto) 0.8 L (2-4) % Baso % (Auto) 0.8 (0-2) % Neut # (Auto) 7200 H (0592-6954) /uL Lymph # (Auto) 2200 (6000-3073) /uL [place] # (Auto) 700 (0-900) /uL Eos # (Auto) 100 (0-450) /uL Baso # (Auto) 100 (0-100) /uL Sodium (137-145) mmol/L Potassium (3.4-5.1) mmol/L Chloride (98-107) mmol/L Carbon Dioxide (22-32) mmol/L BUN (7-17) mg/dL Creatinine (0.52-1.04) mg/dL Estimated GFR (>60) mL/min BUN/Creatinine Ratio (6-22) Glucose (70-100) mg/dL Calcium (8.4-10.2) mg/dL Total Bilirubin (0.2-1.3) mg/dL AST (14-36) IU/L ALT (<35) IU/L Alkaline Phosphatase (38-126) U/L Total Protein (6.3-8.2) g/dL Albumin (3.5-5.0) g/dL Globulin (1.7-4.1) g/dL Albumin/Globulin Ratio (1.0-2.8) Lipase (23-300) U/L TSH (0.47-4.68) uIU/mL Free T4 (0.78-2.19) ng/dL Urine RBC 1-5/hpf D (0-5/HPF) Urine WBC 0-1/hpf (0-5/HPF) Urine Bacteria None seen (None) Ur Culture Indicated? Cult not indicated Salicylates (<20) mg/dL U Opiates 300ng/mL cut Negative (Negative) Ur Oxycodone Screen Negative (Negative) Urine Methadone Screen Negative (Negative) Acetaminophen (10-30) ug/mL Ur Barbiturates Screen Negative (Negative) U Tricyclic Antidepress Negative (Negative) Ur Phencyclidine Scrn Negative (Negative) Ur Amphetamines Screen Negative (Negative) U Methamphetamines Scrn Negative (Negative) Ur MDMA Scrn (Ecstasy) Negative (Negative) U Benzodiazepines Scrn Negative (Negative) Urine Cocaine Screen Negative (Negative) U Marijuana (THC) Screen Positive H (Negative) Ethyl Alcohol ( - 10) mg/dL 01/19/20 01/19/20 01/19/20 Range/Units 09:40 09:40 09:40 WBC (4.5-11.0) X10^3/uL RBC (4.0-5.2) X10^6/uL Hgb (12.0-16.0) g/dL Hct (36-46) % MCV (80-100) fL MCH (26-34) PG MCHC (30-36) % RDW (11.6-14.8) % Plt Count (150-400) X10^3/uL Neut % (Auto) (50-75) % Lymph % (Auto) (25-40) % [place] % (Auto) (3-14) % Eos % (Auto) (2-4) % Baso % (Auto) (0-2) % Neut # (Auto) (4695-7415) /uL Lymph # (Auto) (1923-2160) /uL [place] # (Auto) (0-900) /uL Eos # (Auto) (0-450) /uL Baso # (Auto) (0-100) /uL Sodium 139 (137-145) mmol/L Potassium 3.8 (3.4-5.1) mmol/L Chloride 106 (98-107) mmol/L Carbon Dioxide 23 (22-32) mmol/L BUN 5 L (7-17) mg/dL Creatinine 0.73 (0.52-1.04) mg/dL Estimated GFR > 60.0 (>60) mL/min BUN/Creatinine Ratio 6.8 (6-22) Glucose 80 (70-100) mg/dL Calcium 9.1 (8.4-10.2) mg/dL Total Bilirubin 0.3 (0.2-1.3) mg/dL AST 19 (14-36) IU/L ALT 11 (<35) IU/L Alkaline Phosphatase 81 (38-126) U/L Total Protein 6.9 (6.3-8.2) g/dL Albumin 4.2 (3.5-5.0) g/dL Globulin 2.7 (1.7-4.1) g/dL Albumin/Globulin Ratio 1.6 (1.0-2.8) Lipase 90 (23-300) U/L TSH 2.28 (0.47-4.68) uIU/mL Free T4 1.29 (0.78-2.19) ng/dL Urine RBC (0-5/HPF) Urine WBC (0-5/HPF) Urine Bacteria (None) Ur Culture Indicated? Salicylates 3.4 (<20) mg/dL U Opiates 300ng/mL cut (Negative) Ur Oxycodone Screen (Negative) Urine Methadone Screen (Negative) Acetaminophen < 10 L (10-30) ug/mL Ur Barbiturates Screen (Negative) U Tricyclic Antidepress (Negative) Ur Phencyclidine Scrn (Negative) Ur Amphetamines Screen (Negative) U Methamphetamines Scrn (Negative) Ur MDMA Scrn (Ecstasy) (Negative) U Benzodiazepines Scrn (Negative) Urine Cocaine Screen (Negative) U Marijuana (THC) Screen (Negative) Ethyl Alcohol < 10 ( - 10) mg/dL Point of Care Testing Test Results Negative Urine Dip Bedside Urine Glucose Negative Bedside Urine Bilirubin - Negative Bedside Urine Ketone +++ 80 Urine Specific [place] 1.020 Bedside Urine Occult Blood +++ Bedside Urine pH 6.0 Bedside Urine Protein - Negative Bedside Urine Urobilinogen - Negative Bedside Urine Nitrite - Negative Bedside Urine Leukocytes +/- 15 Esterase Discharge Plan Departure Clinical Impression: Anxiety, [place] Depression Qualifiers: Depression Type: major depressive disorder Major depression recurrence: recurrent Active/Remission status: remission status unspecified Qualified Code(s): F33.9 - Major depressive disorder, recurrent, unspecified Prescriptions: No Action albuterol sulfate [Ventolin HFA] 90 MCG/PUFF HFA aerosol inhaler 2 puff INH PRN PRN (Reason: Shortness Of Breath) Qty: 0 RF: 0 duloxetine [Cymbalta] 30 MG capsule,delayed release(DR/EC) 30 mg PO QDAY Qty: 0 RF: 0 dextroamphetamine-amphetamine [Adderall] 10 MG tablet 10 mg PO QAM Qty: 0 RF: 0 hydroxyzine HCl 25 MG tablet 25 mg PO Q8HP PRNQty: 0 RF: 0 fluoxetine 40 mg capsule RF: 0 lamotrigine 150 mg tablet 150 mg PO BID RF: 0 nicotine 14 mg/24 hr patch 24 hour 1 patch topical DAILY RF: 0 cetirizine 10 mg tablet 10 mg PO DAILY RF: 0 benzonatate 200 mg capsule 200 mg PO QID PRN (Reason: Cough) RF: 0 naltrexone 50 mg tablet 50 mg PO DAILY RF: 0 famotidine 40 mg tablet 40 mg PO DAILY RF: 0 gabapentin 300 mg capsule 300 mg PO TID RF: 0 ibuprofen 600 mg tablet RF: 0 fluticasone propionate 50 mcg/actuation spray,suspension 1 spray INTRANASAL PRN PRN (Reason: Allergy Symptoms) RF: 0
[2020-01-19 07:51] LABS: Bacteria Urine None Seen
[2020-01-19 07:55] LABS: UR Morphine/Opiate cutoff 300 Negative (Negative); Ur Creatinine Normal (Normal); Ur Specific Gravity Normal (Normal); Urine Amphetamines Negative (Negative); Urine Barbiturates Negative (Negative); Urine Benzodiazepines Negative (Negative); Urine Cocaine Negative (Negative); Urine MDMA Negative (Negative); Urine Methadone Negative (Negative); Urine Methamphetamines Negative (Negative); Urine Oxycodone Negative (Negative); Urine Phencyclidine Negative (Negative); Urine Tetrahydrocannabinol Positive (Negative); Urine Tricyclic Antidepressant Negative (Negative); Urine pH Normal (Normal)
[2020-01-19 07:57] LABS: Culture Indicated Urine Cult Not Indicated; RBC Urine 1-5/HPF (0-5/HPF); WBC Urine 0-1/HPF (0-5/HPF)
[2020-01-19] MEDS: LORazepam 0.5 MG TABLET 2 MG PO ×2 (08:01→14:46)
[2020-01-19 09:50] LABS: Add Manual Diff / Slide Review NO; Basophils Absolute Auto 100 /uL (0-100); Basophils Percent Auto 0.8 % (0-2); Eosinophils Absolute Auto 100 /uL (0-450); Eosinophils Percent Auto 0.8 % (2-4); Hematocrit 33.2 % (36-46); Hemoglobin 11.2 g/dL (12.0-16.0); Lymphocytes Absolute Auto 2200 /uL (1100-4500); Lymphocytes Percent Auto 21.3 % (25-40); Mean Corpuscular HGB Conc 33.7 % (30-36); Mean Corpuscular Hemoglobin 29.8 PG (26-34); Mean Corpuscular Volume 88.5 fL (80-100); Monocytes Absolute Auto 700 /uL (0-900); Monocytes Percent Auto 6.5 % (3-14); Neutrophils Absolute Auto 7200 /uL (1500-7000); Neutrophils Percent Auto 70.6 % (50-75); Platelet Count 312 X10^3/uL (150-400); Red Blood Cell Count 3.75 X10^6/uL (4.0-5.2); Red Cell Distribution Width 16.1 % (11.6-14.8); White Blood Cell Count 10.2 X10^3/uL (4.5-11.0)
[2020-01-19 10:02] LABS: Acetaminophen < 10 ug/mL (10-30); Alanine Aminotransferase 11 IU/L (<35); Albumin 4.2 g/dL (3.5-5.0); Albumin Globulin Ratio 1.6 (1.0-2.8); Alkaline Phosphatase 81 U/L (38-126); Aspartate Aminotransferase 19 IU/L (14-36); BUN Creatinine Ratio 6.8 (6-22); Bilirubin Total 0.3 mg/dL (0.2-1.3); Blood Urea Nitrogen 5 mg/dL (7-17); Calcium 9.1 mg/dL (8.4-10.2); Carbon Dioxide 23 mmol/L (22-32); Chloride 106 mmol/L (98-107); Estimated Glomerular Filt Rate > 60.0 mL/min (>60); Ethanol (ETOH) < 10 mg/dL; Globulin 2.7 g/dL (1.7-4.1); Glucose 80 mg/dL (70-100); HEMOLYSIS < 15 (0-50); Lipase 90 U/L (23-300); Potassium 3.8 mmol/L (3.4-5.1); Salicylate 3.4 mg/dL (<20); Sodium 139 mmol/L (137-145); Total Protein 6.9 g/dL (6.3-8.2)
[2020-01-19 10:24] LABS: Free T4, Direct Thyroxine 1.29 ng/dL (0.78-2.19)
[2020-01-19 10:38] LABS: Thyroid Stimulating Hormone 2.28 uIU/mL (0.47-4.68)
--- NOTE | 2020-01-19 11:48 | PC.NURSE ---
assisted pt to bathroom. Pt claimed that the toilet bowl gave her a vision and that she didn't like being by it. It made her feel like she was . Once the pt got back to the room she sat on the gurney and cried claiming that she was crying for no reason and couldnt stop. Pt was moved to room 13 so that the room with monitor was available to another critical pt. Pt was calm and cooperative throughtout the move
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
--- NOTE | 2020-01-19 13:06 | PC.NURSE ---
Patient is awake and seems to constantly talk/cry to herself. When asked whats going on and why she seems to be upset she just rambles and jumps from topic to topic. She said she can't relax and fall asleep because she doesn't have her music or phone in her personal belongings she came in with.
--- NOTE | 2020-01-19 16:16 | PC.NURSE ---
Social work in room with patient
--- NOTE | 2020-01-19 20:06 | PC.NURSE ---
pt given coloring pages and crayons
[2020-01-19] MEDS: LORazepam 0.5 MG TABLET 1 MG PO (20:12)
[2020-01-19] MEDS: OLANZapine ODT 10 MG TAB PO (21:03)
--- NOTE | 2020-01-19 21:07 | CM.SWNOTE ---
DOCTOR OF NAPRAPATHY note Following assessment and discussion with patient, DOCTOR OF NAPRAPATHY begins to seek voluntary behavioral health hospitalization for patient. DOCTOR OF NAPRAPATHY called [facility], [facility], and [facility], all of which had no open beds. DOCTOR OF NAPRAPATHY called [facility] and completed phone screening for patient. DOCTOR OF NAPRAPATHY recieved call requesting that clinicals be faxed to hospital. DOCTOR OF NAPRAPATHY faxed clinicals to [facility]. DOCTOR OF NAPRAPATHY provided update to ZAIN Anglin, patient, and Dr. Huitron. DOCTOR OF NAPRAPATHY will wait for follow up call from [facility]. Perry Call DOCTOR OF NAPRAPATHY
--- NOTE | 2020-01-19 21:45 | CM.SWNOTE ---
INTEGRITY ANALYST maribel Keller called [facility] and informed [facility] that they would not accept patient due to her acuity. INTEGRITY ANALYST called [facility], who informed INTEGR[facility] ANALYST that they will return call later in evening. INTEGRITY ANALYST left ED mainline phone number so that they would be able to speak with RN after INTEGRITY ANALYST shift ends. INTEGRITY ANALYST called [facility] and spoke to Magdalena. Magdalena completed phone screening and requested clinicals be faxed. INTEGRITY ANALYST faxed clinicals to Magdalena at [facility]. INTEGRITY ANALYST will update RN, Dr. Huitron, and patient of current status. INTEGRITY ANALYST will leave clinical packet with RN on duty in case it needs to be faxed to other hospitals for placement consideration. ROYER Madrigal
--- NOTE | 2020-01-19 22:22 | PC.NURSE ---
1900-Pt went to bathroom and took a shower, linens changed and fresh clothes given.
[2020-01-19 22:34] LABS: COVID19 -Nasal RAPID Negative (Negative)
--- NOTE | 2020-01-19 23:15 | PC.NURSE ---
Pt roused to assist her to speak with [place] intake person on the phone. Pt given sandwich and water and assisted back to bed.
--- NOTE | 2020-01-20 | PC.NURSE ---
Received a call from [facility]-- she stated that pt is too acute for the bed they have available but pt would be appropriate for acute bed. None available tonight but we may try again tomorrow if placement is still needed.
[2020-01-20 02:47] VITALS: BP 134/80; PULSE 84; RESP 16; O2SAT 98
[2020-01-20] MEDS: LORazepam 0.5 MG TABLET 1 MG PO (03:16)
[2020-01-20] MEDS: NICOTINE 14 PATCH 14 MG TOP (03:24)
--- NOTE | 2020-01-20 03:29 | PC.NURSE ---
Pt awake, restless. Disoriented to time, surprised when I told her that it's 0300. Pt given snacks. She asked for a nicotine patch, order received from Dr Huitron and patch applied to R upper arm. 1mg ativan given for restlessness/anxiety. Pt now resting in bed with eyes closed, states she wants to be awakened with any news regarding placement or contact from family members.
[2020-01-20] MEDS: IBUPROFEN 400 MG TABLET 800 MG PO (06:49)
[2020-01-20 06:58] VITALS: TEMP 36.5
--- NOTE | 2020-01-20 06:59 | PC.NURSE ---
Pt c/o teeth and back pain. Asking for Motrin. Dr Huitron notified, order received. Pt medicated, updated to plan of care.
[2020-01-20 09:28] VITALS: BP 122/85; PULSE 63; RESP 18; O2SAT 98
--- NOTE | 2020-01-20 11:07 | PC.NURSE ---
pt showered without assistance, pt stated it felt good.
--- NOTE | 2020-01-20 11:08 | PC.NURSE ---
pt is covid negative
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
[2020-01-20] MEDS: LORazepam 0.5 MG TABLET 2 MG PO ×2 (11:12→14:31)
--- NOTE | 2020-01-20 12:52 | PC.NURSE ---
Patient is asking to smoke, walk to the chapel and to take a walk outside.
--- NOTE | 2020-01-20 12:58 | PC.NURSE ---
Pt has many pages of magazines that she would like to mail. Stated that she was kicked out of [facility] and lost her passport. States she needs to contact authorities to get another passport in order to return to [facility]. Also asking about her fish and timing her contractions but then stated she is on menstrual cycle.
[2020-01-20 13:30] VITALS: BP 138/91; PULSE 111; O2SAT 97
--- NOTE | 2020-01-20 13:58 | PC.NURSE ---
Pt asked for some things from a co-worker and stated that when she begins singing she is healing. She got in bed and began singing.
--- NOTE | 2020-01-20 14:25 | PC.NURSE ---
Patient stated that she could feel her IUD strings and stated that she wanted it removed. Washed hands with soap and water.
[2020-01-20] MEDS: DICYCLOMINE 10 MG CAPSULE 20 MG PO (14:30)
--- NOTE | 2020-01-20 15:10 | CM.SWNOTE ---
FEATHER CUTTING MACHINE FEEDER note FEATHER CUTTING MACHINE FEEDER called [facility] to find out if they had any high acuity beds available. FEATHER CUTTING MACHINE FEEDER spoke to Juany. Juany states that they do have beds available in [place] and asks for updated clinical packet. FEATHER CUTTING MACHINE FEEDER faxes updated clinical packet to [facility]. FEATHER CUTTING MACHINE FEEDER will await response from [facility] and follow up with medical staff and patient with updates. ROYER Madrigal
--- NOTE | 2020-01-20 15:22 | PC.NURSE ---
Patient called a friend (left a message) who is the godfather to her and she said she wanted to drive straight to [place] where there is a birthing beach. Called another friend to check in and updated them on her visit in the ER. Requested he check on her car in the hospital parking lot.
--- NOTE | 2020-01-20 15:32 | PC.NURSE ---
Patient is sleeping.
--- NOTE | 2020-01-20 16:04 | PC.NURSE ---
Patient still sleeping.
--- NOTE | 2020-01-20 16:12 | PC.NURSE ---
Pt woke up sneezing and couldn't go back to sleep. Asked if friend had shown up. Swapped out blankets with warm ones.
--- NOTE | 2020-01-20 16:35 | PC.NURSE ---
Patient back to sleep.
--- NOTE | 2020-01-20 17:10 | PC.NURSE ---
Pt is still sleeping.
--- NOTE | 2020-01-20 17:37 | PC.NURSE ---
Pt is still sleeping.
--- NOTE | 2020-01-20 17:48 | CM.SWNOTE ---
MARKETING COMMUNICATIONS ASSISTANT note At 1630 MARKETING COMMUNICATIONS ASSISTANT calls [facility] for update on admission status. Staff at [facility] informs MARKETING COMMUNICATIONS ASSISTANT that they will begin reviewing patient clinicals and follow up with MARKETING COMMUNICATIONS ASSISTANT once they have reached a decision. ROYER Madrigal
--- NOTE | 2020-01-20 17:59 | PC.NURSE ---
Pt still sleeping.
--- NOTE | 2020-01-20 18:08 | PC.NURSE ---
pt laying on gurney. Lights are off and door is cracked. Pt is under constant observation
--- NOTE | 2020-01-20 18:51 | CM.SWNOTE ---
WASH WORKER note WASH WORKER receives call from Juany at [facility] informing WASH WORKER that patient has been approved for inpatient treatment at [facility] [address]. Check-in time 2200. Accepting provider: ROWAN Xie. [id number]: [phone]. Intake contact: Juany. Address: [address] [place] [address]. WASH WORKER informs ZAIN Glover, [facility], and providers Dr. Montoya and Dr. Lopez of acceptance. WASH WORKER informs patient of acceptance to [facility]. Patient expresses relief and is agreeable to plan of care for transfer to [facility]. Plan: [facility] to coordinate transportation for transfer to [facility]. Patient check-in time at [facility] is for 2200 on 01/20/20. ROYER Madrigal
--- NOTE | 2020-01-20 19:15 | PC.NURSE ---
Pt was advised that she has been accepted for transfer to another facility. Requested to take a shower. Said she felt a lot better after showering and commented that she is happy to be transferred.
[2020-01-20 19:21] VITALS: BP 137/88; PULSE 111; O2SAT 98
--- NOTE | 2020-01-20 20:26 | PC.NURSE ---
Patient wanted to get completely organized with her papers and things before transfer. She cried a little and talked about some dreams.
== END 2020-01-20 20:30 ==
PROVIDERS: Emergency Medicine; Emergency Provider Emergency Medicine
DX: F33.9 Major depressive disorder, recurrent, unspecified (principal); F41.9 Anxiety disorder, unspecified
CPT/HCPCS: 36415; 80053; 80305; 80320; 80329; 81003; 81015; 81025; 83690; 84439; 84443; 85025; 87635; 99284; G0480

== ENCOUNTER 2020-03-06 00:57 | Emergency (ER) | payer OTHER, MEDICAID, SELFPAY ==
[2020-03-06 01:00] VITALS: BP 139/98; PULSE 116; RESP 15; TEMP 37.2; O2SAT 97; BMI 27.3
--- NOTE | 2020-03-06 01:09 | ED.GENADULT ---
HPI - General Adult General Chief complaint: Psychiatric Symptoms Stated complaint: Hallucinations Time Seen by Provider: 03/06/20 01:01 Source: patient and EMS Mode of arrival: EMS Limitations: altered mental status History of Present Illness HPI narrative: Patient is a 34-year-old female. Unknown exactly what her past psychiatric history is however the patient stated to the nurse that ?they told me I had bipolar but I do not think so? who was reported by EMS that the patient told them that she should be on lithium however she also told them that she has not been on any medications for the past several weeks. Unsure why the patient has stopped the medications. Patient contacted EMS to come to the emergency department. Patient unable to provide any HPI or review of systems secondary to acute psychosis. Related Data Home Medications Medication Instructions Recorded Confirmed albuterol sulfate [Ventolin HFA] 2 puff INH PRN PRN #0 01/23/17 06/26/19 dextroamphetamine-amphetamine 10 mg PO QAM #0 01/23/17 [Adderall] duloxetine [Cymbalta] 30 mg PO QDAY #0 01/23/17 hydroxyzine HCl 25 mg PO Q8HP PRN #0 04/30/17 benzonatate 200 mg PO QID PRN 06/26/19 06/26/19 cetirizine 10 mg PO DAILY 06/26/19 06/26/19 famotidine 40 mg PO DAILY 06/26/19 06/26/19 fluoxetine mg 06/26/19 fluticasone propionate 1 spray INTRANASAL PRN PRN 06/26/19 06/26/19 gabapentin 300 mg PO TID 06/26/19 06/26/19 ibuprofen 06/26/19 lamotrigine 150 mg PO BID 06/26/19 06/26/19 naltrexone 50 mg PO DAILY 06/26/19 06/26/19 nicotine 1 patch TOPICAL DAILY 06/26/19 06/26/19 Allergies Allergy/AdvReac Type Severity Reaction Status Date / Time morphine [MORPHINE] Allergy Unknown ITCHING Verified 01/19/20 20:11 Review of Systems Review of Systems ROS Unobtainable: Unobtainable due to mental status/LOC Patient History Medical History Asthma (Chronic) Chronic back pain (Acute) S/P ORIF (open reduction internal fixation) fracture (Resolved) Seasonal allergies (Acute) Social History Smoking Status: Former smoker Smoking Status: Former smoker alcohol intake frequency: other Substance Use Type: marijuana Exam Initial Vital Signs Initial Vital Signs: Vital Signs Temperature 98.9 F 03/06/20 01:00 Pulse Rate 116 H 03/06/20 01:00 Respiratory Rate 15 03/06/20 01:00 Blood Pressure 139/98 H 03/06/20 01:00 Pulse Oximetry 97 03/06/20 01:00 Const General: acute distress (Psychosis), No combative and disheveled Limitations: altered mental status HENMT Head: normal to inspection and normocephalic Resp Effort & Inspection: normal respiratory effort Auscultation: clear to auscultation bilaterally Cardio Rate: tachycardic Rhythm: regular rhythm Skin Lesions: no lesions Rashes: no rashes Neuro General: patient awake and moves all extremities Cognition: abnormal cognition Speech: abnormal speech Extrem General: capillary refill normal Psych Appearance: disheveled Speech and Movement: agitated, pressured speech and restless Mood: manic mood and labile mood Affect: animated and elated Attitude: avoids eye contact Thought Process: confabulating, flight of ideas, illogical and tangential Thought Content: hallucinations Judgment: poor Scores GCS [place] coma scale eye opening: Spontaneous [place] coma scale verbal response: Words [place] coma scale motor response: Obey commands [place] coma scale total score: 13 Course Orders Ordered: ED Orders 03/06/20 01:13 Urinalysis and Microscopic Stat Urine Drug Screen, Rapid Stat 03/06/20 01:14 Consult to [facility] - Comb Machine Operator Stat 03/06/20 01:25 Acetaminophen Stat Complete Blood Count AUTO DIFF Stat Comprehensive Metabolic Panel Stat Ethanol (ETOH) Stat Lipase Stat Test Serum,Qual Stat Salicylate Stat Thyroid Stimulating Hormone Stat Discontinued Medications Olanzapine (Zyprexa Zydis) 20 mg PO NOW ONE Stop: 03/06/20 01:10 Last Admin: 03/06/20 01:13 Dose: 20 mg Documented by: MIKY Vital Signs Vital signs: Vital Signs - 8 hr 03/06/20 01:00 Temperature 98.9 F Pulse Rate 116 H Respiratory Rate 15 Blood Pressure 139/98 H Pulse Oximetry 97 Medical Decision Making Lab Data Lab results reviewed: Yes I reviewed the patient's lab results. Result diagrams: 03/06/20 01:25 03/06/20 01:25 Labs: Lab Results 03/06/20 03/06/20 03/06/20 Range/Units 01:25 01:25 01:25 WBC 13.6 H (4.5-11.0) X10^3/uL RBC 3.92 L (4.0-5.2) X10^6/uL Hgb 11.7 L (12.0-16.0) g/dL Hct 35.3 L (36-46) % MCV 90.2 (80-100) fL MCH 29.8 (26-34) PG MCHC 33.1 (30-36) % RDW 15.2 H (11.6-14.8) % Plt Count 344 (150-400) X10^3/uL Neut % (Auto) 80.1 H (50-75) % Lymph % (Auto) 10.8 L (25-40) % [place] % (Auto) 6.3 (3-14) % Eos % (Auto) 2.3 (2-4) % Baso % (Auto) 0.5 (0-2) % Neut # (Auto) 73381 H (7520-5059) /uL Lymph # (Auto) 1500 (8609-5283) /uL [place] # (Auto) 900 (0-900) /uL Eos # (Auto) 300 (0-450) /uL Baso # (Auto) 100 (0-100) /uL Sodium 141 (137-145) mmol/L Potassium 3.6 (3.4-5.1) mmol/L Chloride 106 (98-107) mmol/L Carbon Dioxide 26 (22-32) mmol/L BUN 11 (7-17) mg/dL Creatinine 0.73 (0.52-1.04) mg/dL Estimated GFR > 60.0 (>60) mL/min BUN/Creatinine Ratio 15.1 (6-22) Glucose 114 H (70-100) mg/dL Calcium 9.4 (8.4-10.2) mg/dL Total Bilirubin 0.3 (0.2-1.3) mg/dL AST 27 (14-36) IU/L ALT 14 (<35) IU/L Alkaline Phosphatase 95 (38-126) U/L Total Protein 6.9 (6.3-8.2) g/dL Albumin 4.4 (3.5-5.0) g/dL Globulin 2.5 (1.7-4.1) g/dL Albumin/Globulin Ratio 1.8 (1.0-2.8) Lipase 78 (23-300) U/L TSH (0.47-4.68) uIU/mL Serum , Qual (Negative) Salicylates < 1.0 (<20) mg/dL Acetaminophen < 10 L (10-30) ug/mL Ethyl Alcohol < 10 ( - 10) mg/dL 03/06/20 03/06/20 Range/Units 01:25 01:25 WBC (4.5-11.0) X10^3/uL RBC (4.0-5.2) X10^6/uL Hgb (12.0-16.0) g/dL Hct (36-46) % MCV (80-100) fL MCH (26-34) PG MCHC (30-36) % RDW (11.6-14.8) % Plt Count (150-400) X10^3/uL Neut % (Auto) (50-75) % Lymph % (Auto) (25-40) % [place] % (Auto) (3-14) % Eos % (Auto) (2-4) % Baso % (Auto) (0-2) % Neut # (Auto) (3185-0840) /uL Lymph # (Auto) (3959-0909) /uL [place] # (Auto) (0-900) /uL Eos # (Auto) (0-450) /uL Baso # (Auto) (0-100) /uL Sodium (137-145) mmol/L Potassium (3.4-5.1) mmol/L Chloride (98-107) mmol/L Carbon Dioxide (22-32) mmol/L BUN (7-17) mg/dL Creatinine (0.52-1.04) mg/dL Estimated GFR (>60) mL/min BUN/Creatinine Ratio (6-22) Glucose (70-100) mg/dL Calcium (8.4-10.2) mg/dL Total Bilirubin (0.2-1.3) mg/dL AST (14-36) IU/L ALT (<35) IU/L Alkaline Phosphatase (38-126) U/L Total Protein (6.3-8.2) g/dL Albumin (3.5-5.0) g/dL Globulin (1.7-4.1) g/dL Albumin/Globulin Ratio (1.0-2.8) Lipase (23-300) U/L TSH 0.451 L (0.47-4.68) uIU/mL Serum , Qual Negative (Negative) Salicylates (<20) mg/dL Acetaminophen (10-30) ug/mL Ethyl Alcohol ( - 10) mg/dL MDM Narrative Medical decision making narrative: Patient was not aggressive however was minimally directable. Would sometimes answer questions however would then tangentially go off onto other subjects. Mentioned many times about ?Pirates? and ?angels ?. When asked if she is having any visual hallucinations she states that she ?does not see the shadow people anymore ?patient would not directly answer whether not she was having any auditory hallucinations. I asked the patient if she would like me to give her any medication for how she was feeling she did answer ?yes? and also stated ?give me all of the medicines ?I suspect that her leukocytosis is a stress reaction given presenting status. Patient was given 20 mg of PO Zyprexa after approximately 30 minutes became calm and was able to sleep. I did not feel the need to wake the patient up to obtain a urine sample so that is still pending at the time of turn over. Social work consult placed. Care turned over to day provider at 0700 hours to follow-up and disposition. Discharge Plan Departure Prescriptions: No Action albuterol sulfate [Ventolin HFA] 90 MCG/PUFF HFA aerosol inhaler 2 puff INH PRN PRN (Reason: Shortness Of Breath) Qty: 0 RF: 0 duloxetine [Cymbalta] 30 MG capsule,delayed release(DR/EC) 30 mg PO QDAY Qty: 0 RF: 0 dextroamphetamine-amphetamine [Adderall] 10 MG tablet 10 mg PO QAM Qty: 0 RF: 0 hydroxyzine HCl 25 MG tablet 25 mg PO Q8HP PRNQty: 0 RF: 0 fluoxetine 40 mg capsule RF: 0 lamotrigine 150 mg tablet 150 mg PO BID RF: 0 nicotine 14 mg/24 hr patch 24 hour 1 patch topical DAILY RF: 0 cetirizine 10 mg tablet 10 mg PO DAILY RF: 0 benzonatate 200 mg capsule 200 mg PO QID PRN (Reason: Cough) RF: 0 naltrexone 50 mg tablet 50 mg PO DAILY RF: 0 famotidine 40 mg tablet 40 mg PO DAILY RF: 0 gabapentin 300 mg capsule 300 mg PO TID RF: 0 ibuprofen 600 mg tablet RF: 0 fluticasone propionate 50 mcg/actuation spray,suspension 1 spray INTRANASAL PRN PRN (Reason: Allergy Symptoms) RF: 0
[2020-03-06] MEDS: OLANZapine ODT 10 MG TAB 20 MG PO (01:13)
[2020-03-06 01:53] LABS: Add Manual Diff / Slide Review NO; Basophils Absolute Auto 100 /uL (0-100); Basophils Percent Auto 0.5 % (0-2); Eosinophils Absolute Auto 300 /uL (0-450); Eosinophils Percent Auto 2.3 % (2-4); Hematocrit 35.3 % (36-46); Hemoglobin 11.7 g/dL (12.0-16.0); Lymphocytes Absolute Auto 1500 /uL (1100-4500); Lymphocytes Percent Auto 10.8 % (25-40); Mean Corpuscular HGB Conc 33.1 % (30-36); Mean Corpuscular Hemoglobin 29.8 PG (26-34); Mean Corpuscular Volume 90.2 fL (80-100); Monocytes Absolute Auto 900 /uL (0-900); Monocytes Percent Auto 6.3 % (3-14); Neutrophils Absolute Auto 10900 /uL (1500-7000); Neutrophils Percent Auto 80.1 % (50-75); Platelet Count 344 X10^3/uL (150-400); Red Blood Cell Count 3.92 X10^6/uL (4.0-5.2); Red Cell Distribution Width 15.2 % (11.6-14.8); White Blood Cell Count 13.6 X10^3/uL (4.5-11.0)
[2020-03-06 01:57] LABS: Acetaminophen < 10 ug/mL (10-30)
[2020-03-06 01:59] LABS: Alanine Aminotransferase 14 IU/L (<35); Albumin 4.4 g/dL (3.5-5.0); Albumin Globulin Ratio 1.8 (1.0-2.8); Alkaline Phosphatase 95 U/L (38-126); Aspartate Aminotransferase 27 IU/L (14-36); BUN Creatinine Ratio 15.1 (6-22); Bilirubin Total 0.3 mg/dL (0.2-1.3); Blood Urea Nitrogen 11 mg/dL (7-17); Calcium 9.4 mg/dL (8.4-10.2); Carbon Dioxide 26 mmol/L (22-32); Chloride 106 mmol/L (98-107); Estimated Glomerular Filt Rate > 60.0 mL/min (>60); Ethanol (ETOH) < 10 mg/dL; Globulin 2.5 g/dL (1.7-4.1); Glucose 114 mg/dL (70-100); HEMOLYSIS < 15 (0-50); Lipase 78 U/L (23-300); Potassium 3.6 mmol/L (3.4-5.1); Salicylate < 1.0 mg/dL (<20); Sodium 141 mmol/L (137-145); Total Protein 6.9 g/dL (6.3-8.2)
--- NOTE | 2020-03-06 02:00 | PC.NURSE ---
Michelle Macias on Pt 1:1 @ 0200. pt is currently sleeping, Chest rising and falling
[2020-03-06 02:04] LABS: Pregnancy Test Serum,Qual Negative (Negative)
[2020-03-06 02:38] LABS: Thyroid Stimulating Hormone 0.451 uIU/mL (0.47-4.68)
--- NOTE | 2020-03-06 07:34 | PC.NURSE ---
CROP SETTING OUT MACHINE OPERATOR: pt is sleeping.
[2020-03-06 08:35] VITALS: BP 102/71; PULSE 71; RESP 16; O2SAT 100
[2020-03-06] MEDS: LORazepam 0.5 MG TABLET 2 MG PO (08:44)
[2020-03-06] MEDS: ACETAMINOPHEN 325 MG TABLET 975 MG PO (08:44)
[2020-03-06 09:31] LABS: RBC Urine None Seen (0-5/HPF)
[2020-03-06 09:37] LABS: Appearance Urine UA CLEAR; Bilirubin Urine UA NEGATIVE (NEGATIVE); Color Urine UA YELLOW; Glucose Urine UA NEGATIVE (Negative); Ketones Urine UA 1+ (NEGATIVE); Leukocyte Esterase Urine UA NEGATIVE (NEGATIVE); Nitrite Urine UA NEGATIVE (Negative); Occult Blood Urine UA NEGATIVE (Negative); Protein Urine UA NEGATIVE (Negative); Specific Gravity Urine UA 1.025 (1.000-1.035); Urobilinogen Urine UA 0.2 E.U./dL (0.2)
[2020-03-06 09:51] LABS: Bacteria Urine Few (2-10); Culture Indicated Urine Cult Not Indicated; Mucus Urine 1+ (Negative); Squamous Epithelial Cell Urine 1-5 /HPF (0-5/HPF); WBC Urine 0-1/HPF (0-5/HPF); pH Urine UA 5.5 (4.5-8.0)
[2020-03-06 09:52] LABS: UR Morphine/Opiate cutoff 300 Negative (Negative); Ur Creatinine Normal (Normal); Ur Specific Gravity Normal (Normal); Urine Amphetamines Negative (Negative); Urine Barbiturates Negative (Negative); Urine Benzodiazepines Negative (Negative); Urine Cocaine Negative (Negative); Urine MDMA Negative (Negative); Urine Methadone Negative (Negative); Urine Methamphetamines Positive (Negative); Urine Oxycodone Negative (Negative); Urine Phencyclidine Negative (Negative); Urine Tetrahydrocannabinol Positive (Negative); Urine Tricyclic Antidepressant Negative (Negative); Urine pH Normal (Normal)
--- NOTE | 2020-03-06 12:49 | CM.SWNOTE ---
COKEMAN note COKEMAN attempts to meet with patient. COKEMAN enters room, lights are on in room, and patient has fallen asleep holding the food she was eating. COKEMAN knocks on door loudly and reintroduces self. Patient speaks in a quiet strained/hoarse voice. COKEMAN introduces self to patient and and asks what brought patient into ED today. Patient begins to state something inaudible, and falls asleep mid-sentence. COKEMAN states patient's name loudly and informs patient that COKEMAN will return later to complete assessment. Patient's eyes remain closed and patient nods. COKEMAN will check in with patient later in day to complete assessment. ROYER Madrigal
[2020-03-06 14:31] VITALS: BP 107/66; PULSE 74; RESP 20; O2SAT 99
--- NOTE | 2020-03-06 15:26 | PC.NURSE ---
Patient offered bathroom. Pt remains drowsy but shows increasing signs of aggitation. Asking firmly where are we going now did you throw away the beer?! thats not cool man. Pt reoriented to situation and place. States she is not ready to go to the bathroom yet. She eased back into bed and went right to sleep. Remains in sight of nurses station.
--- NOTE | 2020-03-06 15:58 | CM.SWNOTE ---
Addendum entered by Perry Call 03/06/20 17:06: UPDATE CARTON GLUING MACHINE OPERATOR contacts [facility] and speaks to Veena. Veena requests attestation form be faxed. CARTON GLUING MACHINE OPERATOR obtains Dr. Montoya's signature on attestation form and faxes to VO. CARTON GLUING MACHINE OPERATOR receives voicemail from MEDHAT Tyson. Pilar informs CARTON GLUING MACHINE OPERATOR that MEDHAT Mondragon will be coming on shift soon, but has another referral pending as well. Pilar informs CARTON GLUING MACHINE OPERATOR that she will pass on CARTON GLUING MACHINE OPERATOR's contact info to Giancarlo and requests that clinicals be faxed to [phone]. CARTON GLUING MACHINE OPERATOR sends clinicals from current visit and 01/19/20 visit to DCR. CARTON GLUING MACHINE OPERATOR will wait for MEDHAT Mondragon to follow up. ROYER Madrigal Original Note: CARTON GLUING MACHINE OPERATOR note Patient transfers from room 6 to room 13. CARTON GLUING MACHINE OPERATOR enters room to speak with patient. CARTON GLUING MACHINE OPERATOR asked how patient was feeling and patient instantly escalates and screams at high volume that she was forced to watch as they tortured her , and moves her body in an exaggerated form while stating this. Patient then looks away from CARTON GLUING MACHINE OPERATOR and toward a blank wall and screams something that CARTON GLUING MACHINE OPERATOR is unable to understand. Patient then states yes or no questions only to CARTON GLUING MACHINE OPERATOR. CARTON GLUING MACHINE OPERATOR asks if patient would like to rest for a while and patient nods. Patient then suddenly turns to the wall and begins screaming in anger and appears to be responding to internal stimuli. Patient looks toward CARTON GLUING MACHINE OPERATOR and states that the FBI is watching her to ensure she completes her mission, and states that she has gangs and others watching her as well. Patient remains escalated while explaining this and then tells CARTON GLUING MACHINE OPERATOR that someone needs to call my wedding democrat. RN enters room and CARTON GLUING MACHINE OPERATOR exits and informs patient that he will return. Patient to be placed on 1:1 and CARTON GLUING MACHINE OPERATOR will consult DCR. ROYER Madrigal
--- NOTE | 2020-03-06 18:49 | PC.NURSE ---
Pt. wanted a cigarette and walked out of room 13 and out the ambulance bay door. ED staff followed the patient out the door and tried to persuade her to come back to the department to be seen by the physician. The patient faild to comply with staff request and the [place] PD was called. PD brought the patient back and is now in bed resting and appears asleep.
[2020-03-06] MEDS: NICOTINE 21 MG PATCH TOP (19:27)
--- NOTE | 2020-03-06 19:34 | CM.SWNOTE ---
INTERVENTIONAL TECH note- Update DCR Giancarlo called INTERVENTIONAL TECH. DCR informs INTERVENTIONAL TECH that he will likely not be able to respond until 2200 or 2300 tonight. INTERVENTIONAL TECH informs DCR that INTERVENTIONAL TECH will be off shift by this time and that Dr. Parsons will be the provider at the ED. INTERVENTIONAL TECH provides DCR with consult on patient and informs DCR of patient's attempt to leave. DCR states he feels unsure if a Zoom interview with patient is appropriate. INTERVENTIONAL TECH informed DCR that it is the opinion of this INTERVENTIONAL TECH that in person-interview would be best due to patient's presentation of paranoia and quick escalation. DCR states he will come to to interview patient in person. INTERVENTIONAL TECH will provide update to Dr. Parsons. ROYER Madrigal
[2020-03-06 19:42] VITALS: BP 102/58; PULSE 80; RESP 20; O2SAT 99
[2020-03-06 19:48] LABS: Free T4, Direct Thyroxine 1.55 ng/dL (0.78-2.19)
--- NOTE | 2020-03-06 22:33 | PC.NURSE ---
03/06 at 223 patient had been sleeping since 1944 when I start my shift. Wake up at 2119 asking when will DCR come in to talk to her, told her it is between [id number] tonight. AT 2233 patient walked out of the room asking what time is it, told her it is 2230, patient then ask will someone going to come and talk to her still and stated I will walk out of here if no one come at 2300. Patient is quite agitate.
--- NOTE | 2020-03-06 23:01 | PC.NURSE ---
03/06/[address] Parsons, patient in room talking and laughing in the room by herself
--- NOTE | 2020-03-06 23:06 | PC.NURSE ---
Michelle Macias on 1:1 Pt inlayer silver @ 8651. Pt is sitting in bed talking to self. Beverages and bathroom have been provided
--- NOTE | 2020-03-06 23:18 | PC.NURSE ---
Pt covering one Eye talking about Enabling the G-6 wifi in her head to contact her emergency contacts but they are currently not on the system and she needs to try again later
[2020-03-06] MEDS: ALBUTEROL HFA 60 PUFF/8 GM INH INH (23:23)
[2020-03-06] MEDS: OLANZapine ODT 10 MG TAB PO (23:32)
--- NOTE | 2020-03-06 23:36 | PC.NURSE ---
Pt reports improved breathing in her upper airway post MDI. it felt like I had a birilla pad in there and now its clear. Pt offered tomato soup and fluids. Pt following commands and taking part in care. She is still talking to self and mumbling when staff not in room. Denies complaints at this time.
[2020-03-06 23:43] VITALS: BP 141/89; PULSE 82; RESP 18; TEMP 36.9; O2SAT 98
--- NOTE | 2020-03-07 00:30 | PC.NURSE ---
Pt requested something to wash her feet, basin with soapy H2o and towels provided
--- NOTE | 2020-03-07 00:34 | PC.NURSE ---
Pt provided warm water foot soak per request. Pt is participating in care at this time thought currently expressing flight of thoughts. Sitter remains at watch.
--- NOTE | 2020-03-07 00:40 | PC.NURSE ---
DCR is in Rm with Pt
--- NOTE | 2020-03-07 00:49 | PC.NURSE ---
Pt speaking with DCR
--- NOTE | 2020-03-07 01:04 | PC.NURSE ---
DCR has left Pt Rm and is speaking with . Pt is currently lying on bed quietly with eyes shut
--- NOTE | 2020-03-07 01:24 | PC.NURSE ---
Pt is agitated and wants a cigarette ,Pt has decided to walk out of the Dept. Police notified. Dr has walked Pt back to Dept with Police assistance. Pt is now back in Rm
--- NOTE | 2020-03-07 01:30 | PC.NURSE ---
MEDHAT completed interview. pt had come to door asking if we could call [facility]. Informed pt of her staying at the hospital for the rest of the evening. Pt became agitated and walked out of er and hospital with sitter. Provider close behind. [employer] was called to assist to get pt back into hospital. [employer] intercepted pt and was able to redirect her back to hospital. Pt ambulated back to hospital on her own accord. Pt agreed to ativan after returning to hospital.
[2020-03-07] MEDS: LORazepam 2 MG/ML INJ (01:33)
--- NOTE | 2020-03-07 03:30 | PC.NURSE ---
Pt eyes closed chest rising and falling
[2020-03-07 03:43] LABS: COVID19 -Nasal RAPID Negative (Negative)
--- NOTE | 2020-03-07 04:03 | PC.NURSE ---
Patient is laying on bed sleeping. Door is open to hallway and lights are off in room.
--- NOTE | 2020-03-07 04:30 | PC.NURSE ---
Eyes closed chest rising and falling
[2020-03-07 06:06] VITALS: BP 99/60; PULSE 66; RESP 14; O2SAT 99
--- NOTE | 2020-03-07 06:27 | PC.NURSE ---
Pt departing with A, end watch
--- NOTE | 2020-03-11 16:40 | PC.NURSE ---
Pts provider called asking where pt was transferred. Provider now aware that pt was transferred to [facility] in [place].
== END 2020-03-07 06:46 ==
PROVIDERS: Emergency Medicine; Emergency Provider Emergency Medicine
DX: F31.10 Bipolar disorder, current episode manic without psychotic features, unspecified (principal); F31.9 Bipolar disorder, unspecified; D72.829 Elevated white blood cell count, unspecified; R45.1 Restlessness and agitation
CPT/HCPCS: 36415; 80053; 80305; 80320; 80329; 81001; 83690; 84439; 84443; 84703; 85025; 87635; 99285; G0480; J2060

== ENCOUNTER 2020-12-12 12:25 | Emergency (ER) | payer OTHER, MEDICAID, SELFPAY ==
[2020-12-12 12:32] VITALS: BP 126/70; PULSE 102; RESP 18; TEMP 36.6; O2SAT 97; BMI 30.5
--- NOTE | 2020-12-12 15:41 | ED_ITS ---
HPI - Skin/Abscess/Foreign Bdy General Chief complaint: Skin/Abscess/Foreign Body Stated complaint: Abcess in Rt Armpit, Tried to Pop it, Infection Sp Time Seen by Provider: 12/12/20 15:20 Source: patient Mode of arrival: Ambulatory Limitations: no limitations History of Present Illness HPI narrative: This is a 35-year-old female comes emergency department with multiple concerns. Her main concern is and a abscess and swelling in her right armpit. Patient states she noticed 2 lumps. One of them was quite tender. She states her and her friends sterilized needle by heating over open flame and puncturing the location and attempting to express fluid. She states there were a couple drops of what she describes as yellow clearish fluid and then the redness began to extend further into her arm and she became more painful and more swollen at the site of the lump. No fevers that she is aware. Patient states she has not had multiple episodes or issues in the past, she denies prior skin infections. She does complain of some chest pain and shortness of breath but states that she has asthma. She states that her inhaler is old and likely not affective. She states she normally gets worse this time of year with seasonal symptoms. Patient also concerned because she was tested and treated for gonorrhea 2-3 weeks before as well as a UTI. She broke out with a rash from the calf X which she stopped after several days. She states she also received a shot for the gonorrhea and was told that should treat her UTI appropriately. She does not continue to have urinary symptoms but she is still concern for gonorrhea. Related Data Home Medications Medication Instructions Recorded Confirmed albuterol sulfate [Ventolin HFA] 2 puff INH PRN PRN #0 01/23/17 06/26/19 dextroamphetamine-amphetamine 10 mg PO QAM #0 01/23/17 [Adderall] duloxetine [Cymbalta] 30 mg PO QDAY #0 01/23/17 hydroxyzine HCl 25 mg PO Q8HP PRN #0 04/30/17 benzonatate 200 mg PO QID PRN 06/26/19 06/26/19 cetirizine 10 mg PO DAILY 06/26/19 06/26/19 famotidine 40 mg PO DAILY 06/26/19 06/26/19 fluoxetine mg 06/26/19 fluticasone propionate 1 spray INTRANASAL PRN PRN 06/26/19 06/26/19 gabapentin 300 mg PO TID 06/26/19 06/26/19 ibuprofen 06/26/19 lamotrigine 150 mg PO BID 06/26/19 06/26/19 naltrexone 50 mg PO DAILY 06/26/19 06/26/19 nicotine 1 patch TOPICAL DAILY 06/26/19 06/26/19 Previous Rx's Medication Instructions Recorded albuterol sulfate 2 inh INHALATION Q4H PRN #1 ea 12/12/20 meloxicam [Mobic] 7.5 mg PO BID PRN #20 tab 12/12/20 sulfamethoxazole-trimethoprim 1 tab PO Q12H #20 tab 12/12/20 [Bactrim DS] hydrocodone-acetaminophen 1 tab PO QID PRN #10 tab 12/13/20 ondansetron HCl [Zofran] 4 mg PO Q6H PRN #10 tab 12/13/20 Allergies Allergy/AdvReac Type Severity Reaction Status Date / Time morphine [MORPHINE] Allergy Unknown ITCHING Verified 01/19/20 20:11 cephalexin Allergy ITCHING Verified 12/12/20 12:37 Review of Systems Review of Systems ROS Unobtainable: All systems reviewed & are unremarkable except as noted in HPI and below Patient History Medical History (Updated 12/13/20 @ 15:31 by Nara Taveras DO) Asthma Chronic back pain S/P ORIF (open reduction internal fixation) fracture Seasonal allergies Social History Smoking Status: Current every day smoker Smoking Status: Current every day smoker alcohol intake frequency: other Substance Use Type: marijuana Exam Narrative Exam Narrative: GENERAL: Alert and oriented x three, well-nourished female in mild distress. Patient became quite tearful during evaluation, she expresses that she has been stressed lately. HEENT: Head normocephalic, atraumatic, EOMI, pupils reactive, face symmetric, moist mucous membranes NECK: Supple, full range of motion CARDIOVASCULAR: Regular rate and rhythm without murmurs, rubs or gallops. RESPIRATORY: Breath sounds equal bilaterally, no wheezes rales or rhonchi. ABDOMEN: Soft, nontender. Normoactive bowel sounds all 4 quadrants. No guarding or rebound, rigidity, no mass EXTREMITIES: Normal range of motion, no clubbing. Neurovascularly intact. 2+ radial pulse on the right. Patient has 2 cm lumps that are indurated but not fluctuant on evaluation. There is an area about 12 cm x 8 cm of erythema e xtending from the axilla distally. Patient has normal sensation. She has full range of motion. NEUROLOGICAL: Cranial nerves II through XII grossly intact. Moving all extremities SKIN: Warm, dry, no petechiae, no rashes or lesions. Initial Vital Signs Initial Vital Signs: Vital Signs Temperature 97.8 F 12/12/20 12:32 Pulse Rate 102 H 12/12/20 12:32 Respiratory Rate 18 12/12/20 12:32 Blood Pressure 126/70 12/12/20 12:32 Pulse Oximetry 97 12/12/20 12:32 Course Orders Ordered: Discontinued Medications Ibuprofen (Ibuprofen 400 Mg Tablet) 800 mg PO NOW ONE Stop: 12/12/20 15:21 Last Admin: 12/12/20 15:58 Dose: 800 mg Documented by: STEPHEN Vital Signs Vital signs: Vital Signs - 8 hr 12/12/20 12:32 12/12/20 16:23 Temperature 97.8 F Pulse Rate 102 H 89 Respiratory Rate 18 20 Blood Pressure 126/70 129/78 Pulse Oximetry 97 100 MDM - Skin/Abscess/Foreign Bdy Lab Data Labs: Lab Results 12/12/20 Range/Units 15:50 Urine RBC 0-1/hpf (0-5/HPF) Urine WBC 0-1/hpf (0-5/HPF) Ur Squamous Epith Cells 0-1 /hpf (0-5/HPF) Urine Bacteria None seen (None) Ur Culture Indicated? Cult not indicated MDM Narrative Medical decision making narrative: Bedside US shows no fluid collection at the more proximal lump and minimal fluid surrounded by white halo and white substance through middle. Discussed with patient unlikely to be able express much fluid. Plan for hot compresses locally. Oral antibiotics as she does have a surrounding cellulitis. We discussed hydra adenitis supprativa although this is less likely as patient has not had recurrent symptoms in the past but location and findings are consistent. Patient started oral antibiotics. Urine did appear shows hematuria which she states she has had spotting recently. She is requesting gonorrhea chlamydia testing. Offered pelvic exam but she defers we did discuss that urine sample is not as sensitive. Patient does not wish to wait for the results today. Discharge Plan Departure Patient Disposition: Home Clinical Impression: Cellulitis of axilla, right Instructions: Hidradenitis Suppurativa Activity Restrictions/Additional Instructions: Follow up in the next 2-3 days for recheck if not improving. Take antibiotics until gone. Use warm compresses to the affected area 4 times daily You may take ibuprofen up to 800 mg every 8 hours as needed for pain. You may also take Tylenol up to a 1000 mg every 8 hours as needed for pain. Take pain medication as prescribed, this medication can make you sleepy do not drive, perform his activities or make any major decisions while taking it. Use inhaler 1 2 puffs every 4 hours as needed for wheezing. Your urine gonorrhea/chlamydia test is pending. Cervical testing with a pelvic exam is more sensitive so if you have concerns for infection and the urine test is negative then you should follow up for recheck. Return to the emergency department for fevers greater 100.4 F, rapidly worsening redness, swelling, redness that is extending more than a cm beyond the line drawn on her arm, vomiting, new chest pain or shortness of breath, swelling of her extremities, new numbness, tingling or weakness or other new or concerning symptoms. Prescriptions: New sulfamethoxazole-trimethoprim [Bactrim DS] 800-160 mg tablet 1 tab PO Q12H Qty: 20 RF: 0 albuterol sulfate 90 mcg/actuation aerosol powdr breath activated 2 inh inhalation Q4H PRN (Reason: shortness of breath or wheezing) Qty: 1 RF: 0 meloxicam [Mobic] 7.5 mg tablet 7.5 mg PO BID PRN (Reason: pain) Qty: 20 RF: 0 No Action albuterol sulfate [Ventolin HFA] 90 MCG/PUFF HFA aerosol inhaler 2 puff INH PRN PRN (Reason: Shortness Of Breath) Qty: 0 RF: 0 duloxetine [Cymbalta] 30 MG capsule,delayed release(DR/EC) 30 mg PO QDAY Qty: 0 RF: 0 dextroamphetamine-amphetamine [Adderall] 10 MG tablet 10 mg PO QAM Qty: 0 RF: 0 hydroxyzine HCl 25 MG tablet 25 mg PO Q8HP PRNQty: 0 RF: 0 ondansetron HCl [Zofran] 4 mg tablet 4 mg PO Q6H PRN (Reason: nausea and vomiting) Qty: 10 RF: 0 hydrocodone-acetaminophen 5-325 mg tablet 1 tab PO QID PRN (Reason: pain) Qty: 10 RF: 0 fluoxetine 40 mg capsule RF: 0 lamotrigine 150 mg tablet 150 mg PO BID RF: 0 nicotine 14 mg/24 hr patch 24 hour 1 patch topical DAILY RF: 0 cetirizine 10 mg tablet 10 mg PO DAILY RF: 0 benzonatate 200 mg capsule 200 mg PO QID PRN (Reason: Cough) RF: 0 naltrexone 50 mg tablet 50 mg PO DAILY RF: 0 famotidine 40 mg tablet 40 mg PO DAILY RF: 0 gabapentin 300 mg capsule 300 mg PO TID RF: 0 ibuprofen 600 mg tablet RF: 0 fluticasone propionate 50 mcg/actuation spray,suspension 1 spray INTRANASAL PRN PRN (Reason: Allergy Symptoms) RF: 0
[2020-12-12] MEDS: IBUPROFEN 400 MG TABLET 800 MG PO (15:58)
[2020-12-12 16:12] LABS: Bacteria Urine None Seen
[2020-12-12 16:23] VITALS: BP 129/78; PULSE 89; RESP 20; O2SAT 100
[2020-12-12 16:57] LABS: Culture Indicated Urine Cult Not Indicated; RBC Urine 0-1/HPF (0-5/HPF); Squamous Epithelial Cell Urine 0-1 /HPF (0-5/HPF); WBC Urine 0-1/HPF (0-5/HPF)
[2020-12-15 13:53] LABS: Chlamydia trachomatis NAA NEGATIVE; Neisseria gonorrhoeae NAA NEGATIVE
== END 2020-12-12 16:55 | disposition home or self-care (01) ==
PROVIDERS: Emergency Provider Emergency Medicine
DX: L03.111 Cellulitis of right axilla (principal); R31.9 Hematuria, unspecified; Z20.2 Contact with and (suspected) exposure to infections with a predominantly sexual mode of transmission
CPT/HCPCS: 81015; 87491; 87591; 99283

== ENCOUNTER 2020-12-13 13:38 | Emergency (ER) | payer OTHER, MEDICAID, SELFPAY ==
[2020-12-13 13:40] VITALS: BP 123/73; PULSE 115; RESP 24; TEMP 36.4; O2SAT 99
--- NOTE | 2020-12-13 14:05 | PC.NURSE ---
Red & warm area going outside of previous skin markings. Pt states she has increased pain / discomfort. Tearful. positioned for comfort. Updated on wait.
--- NOTE | 2020-12-13 15:08 | ED.SKABFB ---
HPI - Skin/Abscess/Foreign Bdy General Chief complaint: Skin/Abscess/Foreign Body Stated complaint: Infection spreading in right arm Time Seen by Provider: 12/13/20 15:08 Source: patient and old records reviewed Mode of arrival: Ambulatory Limitations: no limitations History of Present Illness HPI narrative: This is a 35-year-old patient who comes to the emergency department with complaint of infection spreading in her right arm. Patient was seen by myself yesterday with cellulitis extending from her right axilla with an area suspected abscess. Ultrasound at that time there was very minimal to no fluid to drain. Patient was prescribed oral antibiotics. She had her 1st dose here. She states she has not or does not think that she has taken any additional since then. She has felt unwell, she has had not had any objective fevers but has felt chilled. She has had increased pain and states that the redness has extended beyond the line that was drawn here in the department. Patient has had some nausea and vomiting overnight. She denies any chest pain, no shortness of breath. She has not any diarrhea or constipation. She has not had any redness, rashes or skin changes elsewhere. Patient denies any numbness, tingling or weakness. She is a daily smoker she does drink alcohol. She uses marijuana but denies any IV drugs. Patient states she is also bipolar. She does not currently taking her medications. Related Data Home Medications Medication Instructions Recorded Confirmed albuterol sulfate [Ventolin HFA] 2 puff INH PRN PRN #0 01/23/17 06/26/19 dextroamphetamine-amphetamine 10 mg PO QAM #0 01/23/17 [Adderall] duloxetine [Cymbalta] 30 mg PO QDAY #0 01/23/17 hydroxyzine HCl 25 mg PO Q8HP PRN #0 04/30/17 benzonatate 200 mg PO QID PRN 06/26/19 06/26/19 cetirizine 10 mg PO DAILY 06/26/19 06/26/19 famotidine 40 mg PO DAILY 06/26/19 06/26/19 fluoxetine mg 06/26/19 fluticasone propionate 1 spray INTRANASAL PRN PRN 06/26/19 06/26/19 gabapentin 300 mg PO TID 06/26/19 06/26/19 ibuprofen 06/26/19 lamotrigine 150 mg PO BID 06/26/19 06/26/19 naltrexone 50 mg PO DAILY 06/26/19 06/26/19 nicotine 1 patch TOPICAL DAILY 06/26/19 06/26/19 Previous Rx's Medication Instructions Recorded albuterol sulfate 2 inh INHALATION Q4H PRN #1 ea 12/12/20 meloxicam [Mobic] 7.5 mg PO BID PRN #20 tab 12/12/20 sulfamethoxazole-trimethoprim 1 tab PO Q12H #20 tab 12/12/20 [Bactrim DS] hydrocodone-acetaminophen 1 tab PO QID PRN #10 tab 12/13/20 ondansetron HCl [Zofran] 4 mg PO Q6H PRN #10 tab 12/13/20 Allergies Allergy/AdvReac Type Severity Reaction Status Date / Time morphine [MORPHINE] Allergy Unknown ITCHING Verified 01/19/20 20:11 cephalexin Allergy ITCHING Verified 12/12/20 12:37 Review of Systems Review of Systems ROS Unobtainable: All systems reviewed & are unremarkable except as noted in HPI and below Patient History Medical History (Updated 12/13/20 @ 15:31 by Nara Taveras DO) Asthma Chronic back pain S/P ORIF (open reduction internal fixation) fracture Seasonal allergies Social History Smoking Status: Current every day smoker Smoking Status: Current every day smoker alcohol intake frequency: other Substance Use Type: marijuana Exam Narrative Exam Narrative: GENERAL: Alert and oriented x three, well-nourished female in moderate distress. HEENT: Head normocephalic, atraumatic, EOMI, pupils reactive, face symmetric, moist mucous membranes NECK: Supple, full range of motion CARDIOVASCULAR: Regular rate and rhythm without murmurs, rubs or gallops. RESPIRATORY: Breath sounds equal bilaterally, no wheezes rales or rhonchi. ABDOMEN: Soft, nontender. Normoactive bowel sounds all 4 quadrants. No guarding or rebound, rigidity, no mass EXTREMITIES: Normal range of motion. Patient has cellulitis that is still present today, for the majority has not extended beyond the line except for the posterior and it extends several cm. Patient does have slightly increased swelling of the abdomen that. She continued to be quite tender. She does have full range of motion. Muscle strength is 5/5. Neurovascularly intact. Radial pulses 2+. NEUROLOGICAL: Cranial nerves II through XII grossly intact. Moving all extremities SKIN: Warm, dry, no petechiae, no rashes or lesions other than noted above. Initial Vital Signs Initial Vital Signs: Vital Signs Temperature 97.6 F 12/13/20 13:40 Pulse Rate 115 H 12/13/20 13:40 Respiratory Rate 24 12/13/20 13:40 Blood Pressure 123/73 12/13/20 13:40 Pulse Oximetry 99 12/13/20 13:40 Procedures Abscess I/D I&D #1: Site: upper extremity Side (if applicable): right (axilla) Local Anesthetic: lidocaine 1% Amount of anesthesia used (mL): 1.5 Technique: needle aspiration and incised with #11 blade Amount of fluid expressed (mL): 2 Irrigation: Yes Packing used?: none Course Orders Ordered: Discontinued Medications Hydromorphone HCl (Hydromorphone 1 Mg Inj) 1 mg IM NOW ONE Stop: 12/13/20 15:27 Last Admin: 12/13/20 15:37 Dose: 1 mg Documented by: SUNNY Clindamycin Phosphate (Cleocin) 900 mg in 50 mls @ 50 mls/hr IV NOW ONE Stop: 12/13/20 16:25 Last Infusion: 12/13/20 16:33 Dose: 0 mls/hr Documented by: Admin: 12/13/20 15:36 Dose: 50 mls/hr Documented by: BTONER Lidocaine/Sodium Bicarbonate (Lido 1%/Sod Bicarb 8.4% (10ml) 10 Ml Syringe) 10 ml INJ NOW ONE Stop: 12/13/20 15:31 Last Admin: 12/13/20 15:37 Dose: 10 ml Documented by: BTONER Ondansetron HCl (Ondansetron 4 Mg/2 Ml Inj) 4 mg IV NOW ONE Stop: 12/13/20 15:46 Last Admin: 12/13/20 15:53 Dose: 4 mg Documented by: BTONER Vital Signs Vital signs: Vital Signs - 8 hr 12/13/20 13:40 12/13/20 16:31 Temperature 97.6 F Pulse Rate 115 H 92 H Respiratory Rate 24 14 Blood Pressure 123/73 102/66 Pulse Oximetry 99 100 MDM - Skin/Abscess/Foreign Bdy Lab Data Attestation: I reviewed the patient's lab results. Result diagrams: 12/13/20 15:30 12/13/20 15:30 Labs: Lab Results 12/13/20 12/13/20 12/13/20 Range/Units 15:30 15:30 15:30 WBC 16.2 H (4.5-11.0) X10^3/uL RBC 4.20 (4.0-5.2) X10^6/uL Hgb 12.2 (12.0-16.0) g/dL Hct 37.2 (36-46) % MCV 88.5 (80-100) fL MCH 29.1 (26-34) PG MCHC 32.9 (30-36) % RDW 15.3 H (11.6-14.8) % Plt Count 331 (150-400) X10^3/uL Neut % (Auto) 74.2 (50-75) % Lymph % (Auto) 14.4 L (25-40) % Stanton % (Auto) 8.4 (3-14) % Eos % (Auto) 2.6 (2-4) % Baso % (Auto) 0.4 (0-2) % Neut # (Auto) 22004 H (0299-6756) /uL Lymph # (Auto) 2300 (0449-1099) /uL Stanton # (Auto) 1400 H (0-900) /uL Eos # (Auto) 400 (0-450) /uL Baso # (Auto) 100 (0-100) /uL Sodium 135 L (137-145) mmol/L Potassium 4.2 (3.4-5.1) mmol/L Chloride 100 (98-107) mmol/L Carbon Dioxide 27 (22-32) mmol/L BUN 7 (7-17) mg/dL Creatinine 0.73 (0.52-1.04) mg/dL Estimated GFR > 60.0 (>60) mL/min BUN/Creatinine Ratio 9.6 (6-22) Glucose 82 (70-100) mg/dL Lactate 0.9 (0.7-2.1) mmol/L Calcium 9.5 (8.4-10.2) mg/dL Total Bilirubin 0.2 (0.2-1.3) mg/dL AST 35 (14-36) IU/L ALT 14 (<35) IU/L Alkaline Phosphatase 90 (38-126) U/L Total Protein 7.2 (6.3-8.2) g/dL Albumin 4.2 (3.5-5.0) g/dL Globulin 3.0 (1.7-4.1) g/dL Albumin/Globulin Ratio 1.4 (1.0-2.8) Procalcitonin (<0.5) ng/mL 12/13/20 Range/Units 15:30 WBC (4.5-11.0) X10^3/uL RBC (4.0-5.2) X10^6/uL Hgb (12.0-16.0) g/dL Hct (36-46) % MCV (80-100) fL MCH (26-34) PG MCHC (30-36) % RDW (11.6-14.8) % Plt Count (150-400) X10^3/uL Neut % (Auto) (50-75) % Lymph % (Auto) (25-40) % Stanton % (Auto) (3-14) % Eos % (Auto) (2-4) % Baso % (Auto) (0-2) % Neut # (Auto) (2891-1782) /uL Lymph # (Auto) (0468-1708) /uL Stanton # (Auto) (0-900) /uL Eos # (Auto) (0-450) /uL Baso # (Auto) (0-100) /uL Sodium (137-145) mmol/L Potassium (3.4-5.1) mmol/L Chloride (98-107) mmol/L Carbon Dioxide (22-32) mmol/L BUN (7-17) mg/dL Creatinine (0.52-1.04) mg/dL Estimated GFR (>60) mL/min BUN/Creatinine Ratio (6-22) Glucose (70-100) mg/dL Lactate (0.7-2.1) mmol/L Calcium (8.4-10.2) mg/dL Total Bilirubin (0.2-1.3) mg/dL AST (14-36) IU/L ALT (<35) IU/L Alkaline Phosphatase (38-126) U/L Total Protein (6.3-8.2) g/dL Albumin (3.5-5.0) g/dL Globulin (1.7-4.1) g/dL Albumin/Globulin Ratio (1.0-2.8) Procalcitonin 0.06 (<0.5) ng/mL Imaging Data bedside US right axilla: My Impression: patient has increased fluid collection with white halo surrounding consistent with debris within abscess. MDM Narrative Medical decision making narrative: Patient does have increasing redness extending beyond the line on her upper extremity. Patient is tachycardic here in the department. She has only had 1 dose of oral antibiotic and has not had a 2nd at this time. Patient initially has a white count of 16 with a heart rate of 115. This improved while she was here in the department in terms of her tachycardia. Patient's procalcitonin is negative. She has only had a single dose of oral antibiotics. Patient was given option to continue orals verses discussed observation with the hospitalist. Patient elects to be discharged. We did discuss she needs close follow-up and to return. She had only had 1 single dose of oral antibiotic she received a dose of IV clindamycin here. Observation was offered and she declined. Discharge Plan Departure Patient Disposition: Home Clinical Impression: Cellulitis of axilla, right, Abscess of axilla, right Instructions: DI for Cellulitis -- Adult Activity Restrictions/Additional Instructions: Follow up in 24 hours for recheck if not improving. Continue antibiotics you were prescribed yesterday, take your next dose tonight. You may take Zofran 1 tablet every 6 hours needed for nausea. You may take this medication 20 minutes prior to your pain medication and or antibiotic to prevent nausea and vomiting. Pain medication as prescribed, this medication can make you sleepy do not drive, perform hazardous activities or make any major decisions while taking it. Continue with warm compresses to the affected area 4-6 times daily. Wound Care: Keep wound(s) clean and dry. Wash daily with soap and water only. Do not use over the counter products (alcohol or peroxide)on the wounds unless instructed by a physician, can use a triple antibiotic ointment to the affected area. If wound condition worsens (increased/expanding redness, developing fluid blisters, or worsening pain), either contact your doctor for an urgent re-assessment , or return to the Emergency Department. Return to the Emergency Department for any new or worsening symptoms. Return if fever greater than 100.4 Fahrenheit, increased swelling, increasing pain or worsening symptoms such as increased discharge or spreading redness. Please return if you are continuing have redness that is increasing or spreading beyond it's location today. Prescriptions: New ondansetron HCl [Zofran] 4 mg tablet 4 mg PO Q6H PRN (Reason: nausea and vomiting) Qty: 10 RF: 0 hydrocodone-acetaminophen 5-325 mg tablet 1 tab PO QID PRN (Reason: pain) Qty: 10 RF: 0 No Action albuterol sulfate [Ventolin HFA] 90 MCG/PUFF HFA aerosol inhaler 2 puff INH PRN PRN (Reason: Shortness Of Breath) Qty: 0 RF: 0 duloxetine [Cymbalta] 30 MG capsule,delayed release(DR/EC) 30 mg PO QDAY Qty: 0 RF: 0 dextroamphetamine-amphetamine [Adderall] 10 MG tablet 10 mg PO QAM Qty: 0 RF: 0 hydroxyzine HCl 25 MG tablet 25 mg PO Q8HP PRNQty: 0 RF: 0 sulfamethoxazole-trimethoprim [Bactrim DS] 800-160 mg tablet 1 tab PO Q12H Qty: 20 RF: 0 albuterol sulfate 90 mcg/actuation aerosol powdr breath activated 2 inh inhalation Q4H PRN (Reason: shortness of breath or wheezing) Qty: 1 RF: 0 meloxicam [Mobic] 7.5 mg tablet 7.5 mg PO BID PRN (Reason: pain) Qty: 20 RF: 0 fluoxetine 40 mg capsule RF: 0 lamotrigine 150 mg tablet 150 mg PO BID RF: 0 nicotine 14 mg/24 hr patch 24 hour 1 patch topical DAILY RF: 0 cetirizine 10 mg tablet 10 mg PO DAILY RF: 0 benzonatate 200 mg capsule 200 mg PO QID PRN (Reason: Cough) RF: 0 naltrexone 50 mg tablet 50 mg PO DAILY RF: 0 famotidine 40 mg tablet 40 mg PO DAILY RF: 0 gabapentin 300 mg capsule 300 mg PO TID RF: 0 ibuprofen 600 mg tablet RF: 0 fluticasone propionate 50 mcg/actuation spray,suspension 1 spray INTRANASAL PRN PRN (Reason: Allergy Symptoms) RF: 0
[2020-12-13] MEDS: CLINDAMYCIN 900 MG/50 ML PIGGYBACK 50 MG IV (15:36)
[2020-12-13] MEDS: LIDO 1%/SOD BICARB 8.4% (10ML) 10 ML SYRINGE INJ (15:37)
[2020-12-13] MEDS: HYDROMORPHONE 1 MG INJ IM (15:37)
[2020-12-13] MEDS: ONDANSETRON 4 MG/2 ML INJ IV (15:53)
[2020-12-13 15:54] LABS: Add Manual Diff / Slide Review NO; Basophils Absolute Auto 100 /uL (0-100); Basophils Percent Auto 0.4 % (0-2); Eosinophils Absolute Auto 400 /uL (0-450); Eosinophils Percent Auto 2.6 % (2-4); Hematocrit 37.2 % (36-46); Hemoglobin 12.2 g/dL (12.0-16.0); Lymphocytes Absolute Auto 2300 /uL (1100-4500); Lymphocytes Percent Auto 14.4 % (25-40); Mean Corpuscular HGB Conc 32.9 % (30-36); Mean Corpuscular Hemoglobin 29.1 PG (26-34); Mean Corpuscular Volume 88.5 fL (80-100); Monocytes Absolute Auto 1400 /uL (0-900); Monocytes Percent Auto 8.4 % (3-14); Neutrophils Absolute Auto 12000 /uL (1500-7000); Neutrophils Percent Auto 74.2 % (50-75); Platelet Count 331 X10^3/uL (150-400); Red Cell Distribution Width 15.3 % (11.6-14.8); White Blood Cell Count 16.2 X10^3/uL (4.5-11.0)
--- NOTE | 2020-12-13 15:54 | PC.NURSE ---
verbalized ok to give dilauded 1mg iv instead of IM.
[2020-12-13 16:05] LABS: Alanine Aminotransferase 14 IU/L (<35); Albumin 4.2 g/dL (3.5-5.0); Albumin Globulin Ratio 1.4 (1.0-2.8); Alkaline Phosphatase 90 U/L (38-126); Aspartate Aminotransferase 35 IU/L (14-36); BUN Creatinine Ratio 9.6 (6-22); Bilirubin Total 0.2 mg/dL (0.2-1.3); Blood Urea Nitrogen 7 mg/dL (7-17); Calcium 9.5 mg/dL (8.4-10.2); Carbon Dioxide 27 mmol/L (22-32); Chloride 100 mmol/L (98-107); Estimated Glomerular Filt Rate > 60.0 mL/min (>60); Glucose 82 mg/dL (70-100); HEMOLYSIS < 15 (0-50); Lactate (Lactic Acid) 0.9 mmol/L (0.7-2.1); Potassium 4.2 mmol/L (3.4-5.1); Sodium 135 mmol/L (137-145); Total Protein 7.2 g/dL (6.3-8.2)
[2020-12-13 16:21] LABS: Procalcitonin 0.06 ng/mL (<0.5)
[2020-12-13 16:31] VITALS: BP 102/66; PULSE 92; RESP 14; O2SAT 100
== END 2020-12-13 17:04 | disposition home or self-care (01) ==
PROVIDERS: Emergency Provider Emergency Medicine
DX: L03.111 Cellulitis of right axilla (principal); L02.411 Cutaneous abscess of right axilla
CPT/HCPCS: 10060; 36415; 80053; 83605; 84145; 85025; 87040; 87070; 87075; 87077; 87147; 87186; 87205; 99283; 99284; J1170; J2405